=== PATIENT | male | born 1960 | race Caucasian/White ===

== ENCOUNTER 2020-05-23 09:53 | Outpatient (CLI) | payer MEDICARE, MEDICAID, SELFPAY ==
[2020-05-23 12:10] LABS: Basophils # 0.1 10^3/uL (0.0-0.1); Basophils % 1.4 %; Eosinophils # 0.3 10^3/uL (0.0-0.8); Eosinophils % 4.7 %; Hematocrit 45.6 % (42.0-52.0); Hemoglobin 15.2 g/dL (11.7-16.6); Lymphocytes # 1.2 10^3/uL (0.8-4.8); Lymphocytes % 16.4 %; Mean Corpuscular HGB Conc 33.3 g/dL (30.0-36.0); Mean Corpuscular Hemoglobin 31.3 pg (28.0-34.0); Mean Platelet Volume 9.9 fL (7.4-10.4); Monocytes # 0.9 10^3/uL (0.2-0.9); Monocytes % 12.5 %; Neutrophils # 4.53 10^3/uL (1.8-7.7); Neutrophils % 64.2 %; Nucleated Red Blood Cells % 0 %; Platelet Count 179 10^3/cmm (130-400); Red Blood Count 4.85 10^6/uL (4.1-5.3); Red Cell Distribution Width 12.9 % (12.1-15.1); White Blood Count 7.1 10^3/uL (4.0-10.0)
[2020-05-23 12:28] LABS: Alanine Aminotransferase 17 U/L (0-41); Albumin Level 4.3 g/dL (3.5-5.2); Alkaline Phosphatase 89 IU/L (40-130); Anion Gap 13.6 (5-19); Aspartate Amino Transferase 17 U/L (0-40); Blood Urea Nitrogen 14 mg/dL (8-23); Calcium 9.4 mg/dL (8.5-10.5); Carbon Dioxide 26 mmol/L (22-29); Chloride 104 mmol/L (98-107); Globulin 2.8 g/dL (1.3-4.6); Glomerular Filtration Rate 85.8 mL/min (90-130); Glucose 101 mg/dL (65-115); Lactate Dehydrogenase 205 U/L (135-225); Osmolality Calculated 289 mOsm/kg (285-295); Potassium 4.6 mmol/L (3.5-5.1); Sodium 139 mmol/L (136-145); Total Bilirubin 0.4 mg/dL (0.15-1.2); Total Protein 7.1 g/dL (6.6-8.7)
--- NOTE | 2020-05-27 13:24 | ONC CON_ITS ---
Dr. Lewis New Patient Note Patient: Wai Kirkpatrick Unit #: [id number]: 1960 Dicatated By: Yuniel Lewis M.D.Date of Visit: May 23, 2020 Onc MED New Patient/Consult Referring Physician: [facility] History of Present Illness: Mr. Wai Kirkpatrick, is a 59-year-old gentleman with a history of diffuse large B-cell lymphoma diagnosed in August 2019 as per patient prior to diagnosis he noticed progressive left neck mass of 8 to 9 months duration and he had no B symptoms no weight loss no night sweats no dysphagia no dysphonia, patient underwent FNA of cervical lymph node on August 10, 2019 which showed small to medium size B-cell lymphoma subsequently excisional biopsy was done on August 26, 2019 which showed diffuse large B-cell lymphoma, immunohistochemistry showed positive for CD20, PAX 5, BCL-2, BCL 6 e.g. double hit, c-Myc 20% Ki-67 30%, as per record before the diagnosis of lymphoma patient had CT PET scan done which showed hypermetabolic tissue in the left posterior neck in the level 2, level 3 and level 5 measuring 7.3 x 3.7 x 7.8 cm in length with SUV of 7.2-10.8. There are also multiple other cervical lymph nodes. He also had FDG avid supraclavicular lymph nodes and faint FDG accumulation with SUV of 2.4 and pretracheal and para-aortic lymph nodes. FISH testing showed findings consistent with a double hit lymphoma positive for Myc rearrangement and [facility] BCL-2 (14;18) fusion. Patient was admitted to hospital on September 03, 2019 for treatment with DA-REPOCH chemotherapy regimen and with intrathecal methotrexate. As per record intrathecal methotrexate during first chemotherapy course was not given because the patient was on Plavix., So status post 6 cycles of chemotherapy with DA-REPOCH And 5 cycles of intrathecal methotrexate which she completed on January 18, 2020 at [facility] in [place],, CT PET scan done after 4 cycles of chemotherapy on December 21, 2019 showed interval resolution of left neck/supraclavicular lymphadenopathy except for small node adjacent to or within left parotid gland but which has mildly decreased in size and metabolic activity. Stable 10 mm prevascular node with mild metabolic activity As per medical record high-dose methotrexate was under consideration but patient did not go back for that rather moved to [place] in January 2020 so his last visit in hematology clinic at [facility] in [place] was in December 2019. As per medical record his ejection fraction before cycle #2 was 44% Past medical history significant for acute myocardial infarction in November 2014,Status post stent, Now being followed by Dr. Christianson diabetes, essential hypertension, mixed hyperlipidemia, spinal stenosis Today patient denies any specific complaints, no night sweats, no fever chills, no weight loss, no peripheral lymphadenopathy no left neck mass, no weight loss, no dysphagia, no melena or hematochezia, no hemoptysis or hematemesis, no jaundice, no abdominal fullness. Patient is noncompliant and no port maintenance since December 2019 Past Medical History: Mr. Trinidad medical history consists of hyperlipidemia, myocardial infarction, and type II diabetes. Past Surgical History: Mr. Trinidad surgical/procedural history consists of Biopsy on neck, coronary angioplasty, and Right hand repair. Medications: Acyclovir 1 Tablet (of 400 mg) Oral b.i.d., Atorvastatin Calcium 1 Tablet (of 40 mg) Oral daily, Carvedilol 1 Tablet (of 6.25 mg) Oral b.i.d., Cozaar 1 Tablet (of 25 mg) Oral daily, Sulfamethoxazole-Trimethoprim 1 Tablet (of 800-160 mg) Oral for 3 days Allergies: Penicillins Social History: Mr. Kirkpatrick is single and he is a disabled. Mr. Kirkpatrick no longer smokes but had smoked 1.0 pack/day for 25 years. He has no history of drinking. He has indicated exposure to the following products: cigarettes. Family History: Mr. Kirkpatrick's mother is alive: type II diabetes. Mr. Kirkpatrick's father at age 66: heart disease. Mr. Kirkpatrick has 1 brother who is : liver cancer. Review Of Symptoms: Review of Systems is not available for this patient. Vital Signs: Performed on May 23, 2020 11:16: 0, 3, 0.00, 0.00 sq.m, 94 % (LOW), 70 /min, 18 /min, 134/86 mm(hg), 97.8 F (LOW), and 212 lbs (HIGH). Performance Status: 1 - No physically strenuous activity, but ambulatory and able to carry out light or sedentary work (e.g. office work, light house work). (ECOG) Physical Examination: ENMT - No mouth sores, no thrush, no jaundice, no cervical lymphadenopathy or peripheral lymphadenopathy, Respiratory - Lungs are clear to auscultation, Cardiovascular - Regular rate and rhythm of heart, Abdomen - Soft, bowel sounds present, Extremities - No visible edema. Lab/Imaging: Most recent lab results are not available for this patient. Impression: Diffuse large B-cell lymphoma, double hit involving left cervical/supraclavicular, pretracheal, possible involvement of mesenteric and inguinal lymph nodes status post 6 cycles of DA-REPOCH and 5 cycles of intrathecal methotrexate at [facility] in [place], completed in December 2019 follow-up CT PET scan done after 4 cycles of chemotherapy on December 21, 2019 showed interval resolution of left neck/supraclavicular lymphadenopathy except for small node adjacent to or within the left parotid gland but which has mildly decreased in size and metabolic activity, As per medical record patient was supposed to receive high-dose methotrexate but patient moved to [place] in January 2020 and did not consider further treatment or port maintenance History of coronary artery disease status post stent placement, ejection fraction in the range of 40s Hypertension Diabetes Hyperlipidemia Chronic lower back pain due to spinal stenosis Plan: Discussed with patient regarding his disease status, follow-up plan, this point ,will flush his Port-A-Cath today and then continue with monthly port maintenance. We will also consider follow-up CT scan of neck chest abdomen pelvis, as patient is a high risk for recurrence and did not complete recommended treatment, as per medical record high-dose methotrexate was under consideration but patient moved to [facility]. As per discussion with patient he said because of his heart condition high-dose chemotherapy with stem cell was not considered rather observation with lab work-up and scans Patient will return to clinic in 1 month with CBC CMP and LDH and CT scan of neck chest abdomen pelvis Signed By: Yuniel Lewis M.D. <<Signature on File>>
== END 2020-05-23 09:54 | disposition home or self-care (01) ==
LOC: ONCMED 09:57
PROVIDERS: Family Provider Nurse Practitioner; PCP Nurse Practitioner; Visit Provider Internal Medicine Hematology & Oncology
DX: C83.30 Diffuse large B-cell lymphoma, unspecified site (principal); I25.10 Atherosclerotic heart disease of native coronary artery without angina pectoris; I10 Essential (primary) hypertension; E11.9 Type 2 diabetes mellitus without complications; E78.5 Hyperlipidemia, unspecified; G89.29 Other chronic pain; M54.5 Low back pain; M48.061 Spinal stenosis, lumbar region without neurogenic claudication; Z79.899 Other long term (current) drug therapy
CPT/HCPCS: 36591; 80053; 83615; 85025; 99205

== ENCOUNTER 2020-06-01 08:58 | Outpatient (CLI) | payer MEDICARE, MEDICAID, SELFPAY ==
--- NOTE | 2020-06-01 09:12 | CT_ITS ---
WS: [id number] CT NECK WITH CONTRAST HISTORY: LYMPHOMA RESTAGING TECHNIQUE: Contiguous 5 mm axial images are performed through the neck with intravenous contrast. Sag ittal and coronal reformats are also submitted. All CT scans at [facility] use at least o ne of these dose optimization techniques: automated exposure control; mA and/or kV adjustment per pat ient size (includes targeted exams where dose is matched to clinical indication); or iterative recons truction. CONTRAST: CONTRAST: Omnipaque 300; 95 mL IV. DLP: 1903.36 mGycm COMPARISON: None available. Nasopharynx, oropharynx, hypopharynx and larynx are unremarkable. No soft tissue masses or abnormal e nhancement. Torus tubarius and fossa of Rosenmuller and parapharyngeal fat are normal. There are very small benign cervical chain lymph nodes. No enlarged lymph nodes. Normal thyroid. No nodules. Low-attenuation nodule in the RIGHT parotid measures 9 mm. This nodule do es not enhance and this is probably a small cyst. Moderate degenerative disc disease in the cervical spine. Most advanced at C5-6 and C6-7. No fracture s. Visualized portions of the skull base demonstrate no abnormalities. Orbits and globes are within norm al limits. No soft tissue masses. Occluded proximal LEFT internal carotid artery. There is dense calcification and soft plaque. Visualized paranasal sinuses and mastoid air cells are normal. Chronic emphysema. Right-sided Mediport with tip overlying the distal SVC. CT/CT neck w con* [id number] IMPRESSION: 1. No cervical chain lymphadenopathy. 2. Occluded LEFT ICA at the bifurcation.
[2020-06-01] MEDS: iohexol 300 mg/mL 100 mL Btl IV (09:35)
== END 2020-06-01 08:59 | disposition home or self-care (01) ==
PROVIDERS: Visit Provider Internal Medicine Hematology & Oncology
DX: C83.30 Diffuse large B-cell lymphoma, unspecified site (principal); I65.22 Occlusion and stenosis of left carotid artery
CPT/HCPCS: 70491; Q9967

== ENCOUNTER 2022-02-18 13:33 | Emergency (ER) | payer MEDICARE, SELFPAY ==
[2022-02-18 13:47] VITALS: BP 134/76; PULSE 99; RESP 18; TEMP 38.2; O2SAT 94
[2022-02-18 14:32] LABS: Influenza A by IFA positive (Negative); Influenza B by IFA negative (Negative)
[2022-02-18 14:44] LABS: SARS Covid-2 Antigen negative (Negative)
--- NOTE | 2022-02-18 15:16 | ED_ITS ---
Documented by User: TRACIE Johnson 02/18/22 15:26 HPI - URI/Sore Throat General: Chief Complaint: Upper Respiratory Infection Stated Complaint: SOB, n/v Time Seen by Provider: 02/18/22 14:59 History of Present Illness: Patient is in ER for concerns of influenza. He reports that 3 days ago he started having fever and chills with body aches. He reports that he is coughing up phlegm. He reports that he is having some shortness of breath. He is a smoker but has not smoked since this started. He does have an albuterol inhaler at home but he has not been using that. Is still able to drink and he has still been urinating but has had no appetite since Saturday Associated symptoms: Reports chills, fever(s), headache(s), nasal congestion and nausea; Deny abdominal pain, chest pain or vomiting Review of Systems Const: Reports: fever(s), chills, body aches and fatigue ENMT: Reports: nasal discharge, nasal congestion and post nasal drip Card: Denies: chest pain or palpitations Resp: Reports: dyspnea, productive cough and wheezing GI: Reports: nausea; Denies: abdominal pain or vomiting : Denies: flank pain, dysuria or urinary frequency Musc: Reports: other (Body aches) Neuro: Reports: headache(s); Denies: numbness in extremities, weakness in extremities, sensory changes or lack of coordination PFSH ED PFSH: Medical History CAD (coronary artery disease) Diffuse large B-cell lymphoma, unspecified site HTN (hypertension) Spinal stenosis Surgical History H/O hand surgery Family History Father Heart disease Mother Heart disease Social History Smoking and tobacco status: current every day smoker cigarettes Packs smoked per day: 0.5 Years cigarettes smoked: 55 Second hand smoke exposure: No Alcohol intake: never Lives independently: Yes Household members: children Marital status: service: No Current occupational status: disabled History of recent travel: No Current gender identity: Male Special carlos needs: No Agree to transfusion: Yes Physical Exam Const: COMMON NORMALS: no acute distress, patient oriented x3 and alert HENMT: COMMON NORMALS: TM's normal bilaterally NOSE: Nasal discharge present clear TYMPANIC MEMBRANE: TM's normal bilaterally THROAT: uvula midline and postnasal drainage Neck/C-Spine: COMMON NORMALS: no JVD Resp: COMMON NORMALS: normal respiratory effort and No use of accessory muscles AUSCULTATION: wheezes expiratory wheezes and throughout Cardio: COMMON NORMALS: no JVD, regular rate, regular rhythm, S1 normal heart sound present, S2 normal heart sound present and No murmurs present (Cardio) RATE: regular rate RHYTHM: regular rhythm HEART SOUNDS: S1 normal heart sound present and S2 normal heart sound present Neuro: COMMON NORMALS: patient oriented x3 SENSORIUM/ORIENTATION: Yes alert Course Vital Signs: Vital signs: Vital Signs Temperature 100.7 F H 02/18/22 13:47 Pulse Rate 99 02/18/22 13:47 Respiratory Rate 18 02/18/22 13:47 Blood Pressure 134/76 02/18/22 13:47 Pulse Oximetry 94 02/18/22 13:47 Oxygen Delivery Me thod 02/18/22 13:47 MDM - URI/Sore Throat Medical Decision Making Patient is in today for cough, body aches, fever, chills x3 days. Patient tested positive for influenza A. Given patient's history of diffuse large B- cell lymphoma and his report that he has prediabetic I will go ahead and treat patient for influenza with Tamiflu medication. Patient is educated regarding possible benefits and side effects of this medication. Zofran is also given to help with patient's nausea although I suspect the nausea is secondary to his significant postnasal drainage. Patient's lungs with scattered expiratory wheezes throughout. He does have albuterol inhaler at home I have advised him to use that medication as previously prescribed for wheezing. Patient is still a smoker but states that he is not smoking since becoming ill. Advised him of the importance of staying well-hydrated. Discussed fever control. Patient's vital signs are stable in ER today. Will discharge patient home with conservative treatment and Tamiflu. Follow-up with primary care provider as needed. Return to the ER for any new or worsening symptoms including, but not limited to, worsening shortness of breath despite albuterol inhaler, inability to keep oral liquids down, inability to control fever despite Tylenol Motrin. Lab Data Laboratory Results Influenza Type A Ag positive (Negative) 02/18/22 13:50 Influenza Type B Ag negative (Negative) 02/18/22 13:50 SARS-CoV-2 Ag (Rapid) negative (Negative) 02/18/22 13:50 Discharge Plan Discharge Patient Disposition: Home Clinical Impression: Influenza Condition: Stable Prescriptions: New Tamiflu 75 mg capsule 75 mg PO BID 5 Days Qty: 10 0RF ondansetron HCl 4 mg tablet 4 mg PO Q8H PRN (Reason: nausea and vomiting) 3 Days Qty: 9 0RF No Action atorvastatin 40 mg tablet 40 mg PO DAILY Qty: 90 1RF carvedilol 6.25 mg tablet 6.25 mg PO BID Qty: 180 1RF Rx Instructions: must administer with a meal/food losartan 25 mg tablet 25 mg PO DAILY Qty: 90 1RF nitroglycerin 0.4 mg tablet, sublingual 0.4 mg sublingual Q5M PRN (Reason: chest pain) Qty: 60 1RF Rx Instructions: do not exceed 3 doses per episode albuterol sulfate 90 mcg/actuation HFA aerosol inhaler 2 inh inhalation Q6H PRN (Reason: shortness of breath or wheezing) Qty: 8.5 2RF Discharge Orders: Discharge ED (Routine); Ordered 02/18/22 Ordered By: Beatriz Wheat Referrals: Luisa Andrews MD [Primary Care Provider] - Discharge Diet: Advance as tolerated Discharge Activity: Increase activity as tolerated Patient Instructions: Oseltamivir (By mouth) (Tamiflu), Influenza (ED) Activity Restrictions/Additional Instructions: Start Tamiflu today. Use Zofran as needed every 8 hours for nausea and vomiting. Make sure that you are staying well-hydrated. You may use your albuterol inhaler at home as previously prescribed for wheezing and shortness of breath. Follow-up with your primary care provider as needed. Return to the ER for any new or worsening symptoms including, but not limited to, inability to keep oral fluids down, increased shortness of breath despite albuterol inhaler, uncontrolled fever. Coding Level of Care Code ED Interior Design Professional for Chg Fwd Exam Detailed Documented by User: Mao Manuel DO 02/18/22 16:46 HPI - URI/Sore Throat 2 General: Chief Complaint: Upper Respiratory Infection Stated Complaint: SOB, n/v Time Seen by Provider: 02/18/22 14:59 PFSH ED PFSH: Medical History CAD (coronary artery disease) Diffuse large B-cell lymphoma, unspecified site HTN (hypertension) Spinal stenosis Surgical History H/O hand surgery Family History Father Heart disease Mother Heart disease Social History Smoking and tobacco status: current every day smoker cigarettes Packs smoked pe r day: 0.5 Years cigarettes smoked: 55 Second hand smoke exposure: No Alcohol intake: never Lives independently: Yes Household members: children Marital status: service: No Current occupational status: disabled History of recent travel: No Current gender identity: Male Special carlos needs: No Agree to transfusion: Yes Course Vital Signs: Vital signs: Vital Signs Temperature 100.7 F H 02/18/22 13:47 Pulse Rate 99 02/18/22 13:47 Respiratory Rate 18 02/18/22 13:47 Blood Pressure 134/76 02/18/22 13:47 Pulse Oximetry 94 02/18/22 13:47 Oxygen Delivery Me thod 02/18/22 13:47 MDM - URI/Sore Throat Medical Decision Making Patient is in today for cough, body aches, fever, chills x3 days. Patient tested positive for influenza A. Given patient's history of diffuse large B- cell lymphoma and his report that he has prediabetic I will go ahead and treat patient for influenza with Tamiflu medication. Patient is educated regarding possible benefits and side effects of this medication. Zofran is also given to help with patient's nausea although I suspect the nausea is secondary to his significant postnasal drainage. Patient's lungs with scattered expiratory wheezes throughout. He does have albuterol inhaler at home I have advised him to use that medication as previously prescribed for wheezing. Patient is still a smoker but states that he is not smoking since becoming ill. Advised him of the importance of staying well-hydrated. Discussed fever control. Patient's vital signs are stable in ER today. Will discharge patient home with conservative treatment and Tamiflu. Follow-up with primary care provider as needed. Return to the ER for any new or worsening symptoms including, but not limited to, worsening shortness of breath despite albuterol inhaler, inability to keep oral liquids down, inability to control fever despite Tylenol Motrin. Chart reviewed and patient discussed with midlevel. Agree with assessment and plan. Lab Data Laboratory Results Influenza Type A Ag positive (Negative) 02/18/22 13:50 Influenza Type B Ag negative (Negative) 02/18/22 13:50 SARS-CoV-2 Ag (Rapid) negative (Negative) 02/18/22 13:50 Discharge Plan Discharge Patient Disposition: Home Clinical Impression: Influenza Condition: Stable Prescriptions: New Tamiflu 75 mg capsule 75 mg PO BID 5 Days Qty: 10 0RF ondansetron HCl 4 mg tablet 4 mg PO Q8H PRN (Reason: nausea and vomiting) 3 Days Qty: 9 0RF No Action atorvastatin 40 mg tablet 40 mg PO DAILY Qty: 90 1RF carvedilol 6.25 mg tablet 6.25 mg PO BID Qty: 180 1RF Rx Instructions: must administer with a meal/food losartan 25 mg tablet 25 mg PO DAILY Qty: 90 1RF nitroglycerin 0.4 mg tablet, sublingual 0.4 mg sublingual Q5M PRN (Reason: chest pain) Qty: 60 1RF Rx Instructions: do not exceed 3 doses per episode albuterol sulfate 90 mcg/actuation HFA aerosol inhaler 2 inh inhalation Q6H PRN (Reason: shortness of breath or wheezing) Qty: 8.5 2RF Discharge Orders: Discharge ED (Routine); Ordered 02/18/22 Ordered By: Beatriz Wheat Referrals: Luisa Andrews MD [Primary Care Provider] - Discharge Diet: Advance as tolerated Discharge Activity: Increase activity as tolerated Patient Instructions: Oseltamivir (By mouth) (Tamiflu), Influenza (ED) Activity Restrictions/Additional Instructions: Start Tamiflu today. Use Zofran as needed every 8 hours for nausea and vomiting. Make sure that you are staying well-hydrated. You may use your albuterol inhaler at home as previously prescribed for wheezing and shortness of breath. Follow-up with your primary care provider as needed. Return to the ER for any new or worsening symptoms including, but not limited to, inability to keep oral fluids down, increased shortness of breath despite albuterol inhaler, uncontrolled fever. Coding Level of Care Code ED Interior Design Professional for Chg Fwd Exam Detailed
== END 2022-02-18 15:50 | disposition home or self-care (01) ==
PROVIDERS: Family Medicine; Emergency Provider Nurse Practitioner Family; PCP Family Medicine
DX: J11.1 Influenza due to unidentified influenza virus with other respiratory manifestations (principal); I25.10 Atherosclerotic heart disease of native coronary artery without angina pectoris; I10 Essential (primary) hypertension; Z85.72 Personal history of non-Hodgkin lymphomas; F17.210 Nicotine dependence, cigarettes, uncomplicated; Z20.822 Contact with and (suspected) exposure to COVID-19
CPT/HCPCS: 87426; 87804; 99283

== ENCOUNTER 2022-02-23 11:51 | Inpatient (IN) | payer MEDICARE, MEDICAID, SELFPAY ==
[2022-02-23] VITALS (14 sets, daily range): BP systolic 118–140; BP diastolic 61–78; PULSE 78–108; RESP 16–32; TEMP 36.3–36.7; O2SAT 90–98; BMI 28.5
--- NOTE | 2022-02-23 13:13 | XRR_ITS ---
PROCEDURE INFORMATION: Exam: XR Chest Exam date and time: 02/23/2022 1:30 PM Age: 61 years old Clinical indication: Cough and shortness of breath. History of lymphoma. Worsening cough and shortness of breath. TECHNIQUE: Imaging protocol: Radiologic exam of the chest. Views: 1 view. COMPARISON: CR XR chest 1V [id number] 03/09/2015 1:08 PM FINDINGS: Tubes, catheters and devices: Right port with tip in the SVC. Lungs: There is mild peribronchial wall thickening. No pulmonary consolidation. Pleural spaces: No pleural effusion. No pneumothorax. Heart/Mediastinum: The cardiac silhouette is approximately unchanged. No gross evidence of pneumomediastinum. Bones/joints: No gross fracture. Soft tissues: Possible small nodules in the lower right chest. XR/XR chest 1V portable [id number] IMPRESSION: 1. There is mild peribronchial wall thickening; query viral infection/bronchitis, chronic bronchitis and/or asthma. 2. Possible small nodules in the lower right chest. 3. Recommend CT chest to better characterize.
--- NOTE | 2022-02-23 13:43 | ECG_ITS ---
[facility] Test Date: 2022-02-23 Pat Name: Wai Kirkpatrick Department: Room: Gender: Male Well Drill Operator: : 1960 Requested By: Rocky Alas Order Number: [id number] Odell MD: Noreen Sexton M.D. Measurements Intervals [place] Rate: 97 P: 76 VA: 155 QRS: 72 QRSD: 110 T: 91 QT: 341 QTc: 434 Interpretive Statements SINUS RHYTHM LOW QRS VOLTAGE IN PRECORDIAL LEADS [QRS DEFLECTION < 1.0 mV IN CHEST LEADS] SEPTAL MYOCARDIAL INFARCTION , PROBABLY OLD [40+ ms Q WAVE IN V1/V2] Compared to ECG 03/09/2015 12:10:28 Low QRS voltage now present Myocardial infarct finding now present Electronically Signed On 02-24-2022 7:47:01 PIPE BENDER by Noreen Sexton M.D. [id number]
--- NOTE | 2022-02-23 13:44 | ED_ITS ---
HPI - SOB/Dyspnea General: Chief Complaint: Shortness of Breath/Dyspnea Stated Complaint: SOB Time Seen by Provider: 02/23/22 13:13 Source: patient and family Mode of arrival: ambulatory Limitations: no limitations History of Present Illness: HPI Narrative: This patient returns to our emergency department because of increasing difficulty breathing and a nonproductive cough. He states his symptoms have not improved over the duration of his illness and treatment that was initiated several days ago in the emergency department. He was positive for influenza A and was begun on Tamiflu. He has not completed a course of therapy for that medication. He has a tobacco user. He states he has been told he has COPD and has an inhaler at home but states he cannot breathe well enough to using his inhaler. He denies any known fevers. He states his appetites been diminished but he has been drinking fluids. He denies any sustained chest pain but is sore when he coughs. He denies any history of thromboembolic disease. He states he has had stents placed in the past but again denies any sustained chest pain. He rates he is not any nausea vomiting or diarrhea. No prior history of admissions for COPD etc. MD elicited complaint: cough Pertinent past history: COPD Timing: progressively worsening Known history of: COPD Associated symptoms: Deny abdominal pain, chest pain, extremity pain, fever(s), nausea, palpitations or vomiting Review of Systems Const: Reports: body aches and change in appetite; Denies: fever(s) or chills Eyes: Denies: change in vision ENMT: Reports: nasal congestion; Denies: throat pain, odynophagia or nasal discharge Card: Denies: chest pain, palpitations, irregular heart rhythm or edema Resp: Reports: dyspnea, non-productive cough and wheezing GI: Denies: abdominal pain, nausea, vomiting, hematochezia or melena : Denies: flank pain, difficulty urinating, dysuria or urinary frequency Musc: Denies: neck pain, back pain, extremity pain or extremity swelling Skin/Breast: Denies: rash Neuro: Denies: headache(s), numbness in extremities or weakness in extremities PFS ED PFSH: Medical History CAD (coronary artery disease) Diffuse large B-cell lymphoma, unspecified site HTN (hypertension) Spinal stenosis Surgical History H/O hand surgery Family History Father Heart disease Mother Heart disease Social History Smoking and tobacco status: current every day smoker cigarettes Packs smoked per day: 0.5 Years cigarettes smoked: 55 Second hand smoke exposure: No Alcohol intake: never Lives independently: Yes Household members: children Marital status: service: No Current occupational status: disabled History of recent travel: No Current gender identity: Male Special carlos needs: No Agree to transfusion: Yes Physical Exam Narrative: EXAM NARRATIVE: The patient is alert he has some conversational dyspnea when questioned. Makes good eye contact. Const: COMMON NORMALS: average body habitus, patient oriented x3 and alert GENERAL APPEARANCE: cooperative HENMT: COMMON NORMALS: normocephalic, atraumatic, Normal nasal mucous membranes and turbinates present, moist oral mucous membranes and oropharynx normal HEAD & SCALP: normocephalic and atraumatic NOSE: Normal nasal mucous membranes and turbinates present Eye: COMMON NORMALS: Equal, round and reactive pupils present, EOMs intact bilaterally and conjunctivae normal CONJUNCTIVA: Yes conjunctivae normal PUPIL: Yes Equal, round and reactive pupils present Neck/C-Spine: COMMON NORMALS: full ROM, no JVD and No carotid bruits Chest: COMMONS NORMALS: normal inspection of the chest (Port left anterior chest) Resp: EFFORT & INSPECTION: Yes labored and Yes Actively coughing AUSCULTATION: rhonchi, wheezes and diminished lung sounds Cardio: COMMON NORMALS: no JVD, regular rate, regular rhythm, No murmurs p resent (Cardio) and Peripheral pulses 2+ throughout RATE: regular rate RHYTHM: regular rhythm PERIPHERAL PULSES: Peripheral pulses 2+ throughout GI: COMMON NORMALS: Normal to inspection, nondistended, normoactive bowel sounds present, Soft to palpation and non-tender PALPATION: Yes Soft to palpation : COMMON NORMALS: Yes no CVA tenderness BLADDER/KIDNEY EXAM: Yes no CVA tenderness Back/Pelvis: COMMON NORMALS: no CVA tenderness, thoracic and lumbar spine normal to inspection, no thoracic nor lumbar tenderness and thoraco-lumbar ROM normal Extremity: COMMON NORMALS: normal to inspection, full ROM, capillary refill normal, no calf tenderness and no pedal edema Neuro: COMMON NORMALS: patient oriented x3, moves all extremities, no focal motor deficits and no sensory deficits noted SENSORIUM/ORIENTATION: Yes alert CRANIAL NERVES: Yes CN normal except as noted Psych: COMMON NORMALS: mental status grossly normal and cooperative Skin: COMMON NORMALS: no rashes or lesions noted, no wounds and no jaundice GENERAL SKIN EXAM: no rashes or lesions noted Course Reevaluation(s): Reevaluation #1: Patient states he is a bit better after his single DuoNeb treatment. Auscultation of chest reveals significantly improved air movement with predominant wheezes in both lung nix. We will [place] proceed with a prolonged beta-2 and anticholinergic treatment. Radiology requests CT scan to characterize abnormal findings on chest x-ray today we will going proceed with a Noncon CT chest. Time: 14:32 Reevaluation #2: Patient is now becoming more dyspneic. Would not obtain an ABG and institute noninvasive positive pressure ventilation as needed. Time: 15:50 Reevaluation #3: Markedly improved with noninvasive positive pressure. While his ABG was not terribly concerning at the the initiation of his BiPAP his clinical work of breathing prompted the initiation of that therapy. He may in fact be able to be weaned off his BiPAP rather easily but I think we have to give him some time before we can make that decision and therefore the admission- we will go ahead and plan for admission. Time: 17:07 Vital Signs: Vital signs: Vital Signs Temperature 98.1 F 02/23/22 12:03 Pulse Rate 89 02/23/22 16:47 Respiratory Rate 20 H 02/23/22 16:16 Blood Pressure 140/68 02/23/22 16:16 Pulse Oximetry 97 02/23/22 16:47 Oxygen Delivery Me thod 02/23/22 16:16 Oxygen Flow Rate 2 02/23/22 16:16 Fraction of Inspir ed Oxygen 30 02/23/22 16:47 MDM - SOB/Dyspnea Medical Decision Making Patient with a known history of COPD, chronic tobacco use, coronary artery disease presents to the emergency department as a result of increasing wheezing and shortness of breath. He was recently diagnosed as having influenza and started on Tamiflu but he states he continued to have him worsening symptoms. His clinical examination initially revealed very tight chest with minimal air movement. After single neb he did show some improvement with increased air movement and concomitantly increased wheezing. He was given an hour-long DuoNeb which also proved to be helpful but developed increased work of breathing and responded well to a trial of noninvasive positive pressure pressure ventilation to reduce that work of breathing. CT scan was obtained due to radiology's recommendations and that shows potential perihilar and more distal infiltrates. He also has an elevation in his BNP but no acute EKG changes. I do not feel that ACS is a issue at this time his troponin is not significantly elevated. I do not have a baseline BNP for him but he does not have any significant cardiomegaly on his imaging. Plan will be to start him on antibiotics, continue nebs and steroids as indicated and follow his clinical response. Medical Records I reviewed the patient's medical records. Lab Data I reviewed the patient's lab results. 02/23/22 14:07 02/23/22 14:07 Labs/Radiology: Radiology Impressions Chest X-Ray 02/23/22 13:13 IMPRESSION: 1. There is mild peribronchial wall thickening; query viral infection/bronchitis, chronic bronchitis and/or asthma. 2. Possible small nodules in the lower right chest. 3. Recommend CT chest to better characterize. Chest CT 02/23/22 14:31 IMPRESSION: 1. Patchy tree-in-bud micronodular infiltrates throughout both lungs more prominent in the perihilar regions and RIGHT greater than LEFT lower lobes. Associated bronchiectasis. Recommend correlation for pneumonitis. 2. No focal consolidation or pleural fluid. 3. A few prominent LEFT peribronchial and hilar lymph nodes likely reactive. 4. Coronary calcification. 5. No other acute findings. Laboratory Results WBC 10.7 10^3/uL (4.0-10.0) H 02/23/22 14:07 RBC 5.02 10^6/uL (4.1-5.3) 02/23/22 14:07 Hgb 15.2 g/dL (11.7-16.6) 02/23/22 14:07 Hct 45.1 % (42.0-52.0) 02/23/22 14:07 MCV 89.8 fl (80-94) 02/23/22 14:07 MCH 30.3 pg (28.0-34.0) 02/23/22 14:07 MCHC 33.7 g/dL (30.0-36.0) 02/23/22 14:07 RDW 12.3 % (12.1-15.1) 02/23/22 14:07 Plt Count 250 10^3/cmm (130-400) 02/23/22 14:07 MPV 9.8 fL (7.4-10.4) 02/23/22 14:07 Neut % (Auto) 62.3 % 02/23/22 14:07 Lymph % (Auto) 10.5 % 02/23/22 14:07 [place] % (Auto) 26.1 % 02/23/22 14:07 Eos % (Auto) 0.1 % 02/23/22 14:07 Baso % (Auto) 0.2 % 02/23/22 14:07 Neut # (Auto) 6.69 10^3/uL (1.8-7.7) 02/23/22 14:07 Lymph # (Auto) 1.1 10^3/uL (0.8-4.8) 02/23/22 14:07 [place] # (Auto) 2.8 10^3/uL (0.2-0.9) H 02/23/22 14:07 Eos # (Auto) 0.0 10^3/uL (0.0-0.8) 02/23/22 14:07 Baso # (Auto) 0.0 10^3/uL (0.0-0.1) 02/23/22 14:07 Nucleated RBC % (auto) 0 % 02/23/22 14:07 Nucleated RBCs # 0.0 /100WBC 02/23/22 14:07 Specimen Type Arterial 02/23/22 15:51 Sample Site Brachial, left 02/23/22 15:51 ABG pH 7.40 (7.35-7.45) 02/23/22 15:51 ABG pCO2 40.6 mmHg (35-45) 02/23/22 15:51 ABG pO2 60.4 mmHg (80.0-100.0) L 02/23/22 15:51 ABG HCO3 25.4 mmol/L (22-26) 02/23/22 15:51 ABG O2 Saturation 91.9 02/23/22 15:51 ABG Base Excess 0.5 mmol/L (-2.0-2.0) 02/23/22 15:51 Arik Test N/a 02/23/22 15:51 A-a O2 Gradient 11.5 mmHg (5-10) H 02/23/22 15:51 Hematocrit 46.0 % (42-52) 02/23/22 15:51 Hgb O2 Saturation 90.0 % (95-100) L 02/23/22 15:51 Carboxyhemoglobin 1.3 %THgb (0.4-20.1) 02/23/22 15:51 Methemoglobin 0.8 % (0.4-1.5) 02/23/22 15:51 Total Hemoglobin 15.0 g/dL (14-18) 02/23/22 15:51 Sodium 133.0 mmol/L (131-143) 02/23/22 15:51 Potassium 4.1 mmol/L (3.5-5.0) 02/23/22 15:51 Glucose 179.0 mg/dL (70-115) H 02/23/22 15:51 Ionized Calcium 1.1 mmol/L (1.1-1.4) 02/23/22 15:51 O2 Delivery Device Nc 02/23/22 15:51 O2 Liters/Min 2.0 % 02/23/22 15:51 FiO2 28.0 % 02/23/22 15:51 Billet Heater Operator ID Amh 02/23/22 15:51 Sodium 132 mmol/L (136-145) L 02/23/22 14:07 Potassium 4.4 mmol/L (3.5-5.1) 02/23/22 14:07 Chloride 92 mmol/L (98-107) L 02/23/22 14:07 Carbon Dioxide 26 mmol/L (22-29) 02/23/22 14:07 Anion Gap 18.4 (5-19) 02/23/22 14:07 BUN 17 mg/dL (8-23) 02/23/22 14:07 Creatinine 0.8 mg/dL (0.7-1.2) 02/23/22 14:07 GFR Calculation 97.6 mL/min (90-130) 02/23/22 14:07 Glucose 169 mg/dL (65-115) H 02/23/22 14:07 Calculated Osmolality 279 mOsm/kg (285-295) L 02/23/22 14:07 Calcium 9.1 mg/dL (8.5-10.5) 02/23/22 14:07 Total Bilirubin 0.7 mg/dL (0.15-1.2) 02/23/22 14:07 AST 47 U/L (0-40) H 02/23/22 14:07 ALT 53 U/L (0-41) H 02/23/22 14:07 Alkaline Phosphatase 98 U/L (40-130) 02/23/22 14:07 Troponin T Baseline 19 ng/L (0-15) H 02/23/22 14:07 NT-Pro-B Natriuret Pep 2912 pg/mL (0-125) H 02/23/22 14:07 Total Protein 7.2 g/dL (6.6-8.7) 02/23/22 14:07 Albumin 3.2 g/dL (3.5-5.2) L 02/23/22 14:07 Globulin 4.0 g/dL (1.3-4.6) 02/23/22 14:07 EKG Data EKG 1: I personally reviewed and interpreted this EKG as follows: Interpretation: Contemporaneous EKG interpretation in the emergency department reveals ventricular rate of 97 bpm. Consistent with normal sinus rhythm. Has normal intervals, normal axis, normal QTc interval. Precordial leads show loss of forces anteriorly consistent with a possible remote anterior wall ID but no acute ST-T wave changes noted today. EKG 2: I personally reviewed and interpreted this EKG as follows: Interpretation: Contemporaneous review of the second EKG this visit reveals ventricular rate of 94 bpm consistent with sinus rhythm. Normal intervals and normal axis. Still has loss of forces anteriorly consistent with a prior anterior septal ID. No acute changes and no changes from prior tracing. Discharge Plan Discharge Patient Disposition: Placed in Observation Clinical Impression: COPD exacerbation, Influenza Condition: Stable Prescriptions: No Action carvedilol 6.25 mg tablet 6.25 mg PO BID Qty: 180 1RF Rx Instructions: must administer with a meal/food nitroglycerin 0.4 mg tablet, sublingual 0.4 mg sublingual Q5M PRN (Reason: chest pain) Qty: 60 1RF Rx Instructions: do not exceed 3 doses per episode albuterol sulfate 90 mcg/actuation HFA aerosol inhaler 2 inh inhalation Q6H PRN (Reason: shortness of breath or wheezing) Qty: 8.5 2RF ondansetron HCl 4 mg tablet 4 mg PO Q8H PRN (Reason: Nausea And Vomiting) oseltamivir 75 mg capsule 75 mg PO BID Rx Instructions: rx filled 02/18/22 5d/s atorvastatin 40 mg tablet 40 mg PO BEDTIME losartan 25 mg tablet 25 mg PO QAM aspirin 325 mg Tablet 325 mg PO DAILY Referrals: Luisa Andrews MD [Primary Care Provider] - Coding Level of Care Code ED Systems Test Analyst for Chg Fwd Exam Comprehensive
[2022-02-23] MEDS: ipratropium-albuterol 3 mL Neb INHALATION (13:55)
[2022-02-23] MEDS: sodium chloride 0.9% 1,000 ML 999 ML IV (14:12)
[2022-02-23 14:16] LABS: Basophils % 0.2 %; Eosinophils % 0.1 %; Hematocrit 45.1 % (42.0-52.0); Hemoglobin 15.2 g/dL (11.7-16.6); Lymphocytes # 1.1 10^3/uL (0.8-4.8); Lymphocytes % 10.5 %; Mean Corpuscular HGB Conc 33.7 g/dL (30.0-36.0); Mean Corpuscular Hemoglobin 30.3 pg (28.0-34.0); Mean Corpuscular Volume 89.8 fl (80-94); Mean Platelet Volume 9.8 fL (7.4-10.4); Monocytes # 2.8 10^3/uL (0.2-0.9); Monocytes % 26.1 %; Neutrophils # 6.69 10^3/uL (1.8-7.7); Neutrophils % 62.3 %; Nucleated Red Blood Cells % 0 %; Platelet Count 250 10^3/cmm (130-400); Red Blood Count 5.02 10^6/uL (4.1-5.3); Red Cell Distribution Width 12.3 % (12.1-15.1); White Blood Count 10.7 10^3/uL (4.0-10.0)
--- NOTE | 2022-02-23 14:31 | CT_ITS ---
WS: [id number] CT CHEST TECHNIQUE: Noncontrast CT of the chest with coronal and sagittal reformatted images. CLINICAL INFORMATION: rad request to charaterize nodules COMPARISON: Radiograph February 23, 2022 DLP: 541.[address] scans at [facility] use at least one of these dose optimization techniques: automated e xposure control; mA and/or kV adjustment per patient size (includes targeted exams where dose is matc hed to clinical indication); or iterative reconstruction. FINDINGS: Some images are degraded due to breathing artifact. Patchy tree-in-bud infiltrates throughout both janene ngs most prominent in the RIGHT greater than LEFT perihilar regions extending into the RIGHT greater than LEFT lower lobes bilaterally. Findings are likely infectious or inflammatory etiology. Recommend correlation for pneumonitis. No focal consolidation or pleural fluid. Bronchiectasis in the RIGHT gr eater than LEFT upper lobes and RIGHT greater than LEFT lower lobes. Tree-in-bud infiltrates in the R IGHT middle lobe and lingula. Normal caliber thoracic aorta. Coronary calcification. A few presumably reactive slightly prominent p eribronchial and hilar lymph nodes. Adrenal glands are normal. Splenic granulomas. Normal GE junction . Mild thoracic kyphosis. Hypertrophic changes thoracic spine. CT/CT chest wo con [id number] IMPRESSION: 1. Patchy tree-in-bud micronodular infiltrates throughout both lungs more prom inent in the perihilar regions and RIGHT greater than LEFT lower lobes. Associa kalpesh bronchiectasis. Recommend correlation for pneumonitis. 2. No focal consolidation or pleural fluid. 3. A few prominent LEFT peribronchial and hilar lymph nodes likely reactive. 4. Coronary calcification. 5. No other acute findings.
[2022-02-23 14:39] LABS: Troponin(5th) Baseline 19 ng/L (0-15)
[2022-02-23] MEDS: ipratropium-albuterol 3 mL Neb 9 ML INHALATION (14:43)
[2022-02-23 14:47] LABS: Alanine Aminotransferase 53 U/L (0-41); Albumin Level 3.2 g/dL (3.5-5.2); Alkaline Phosphatase 98 U/L (40-130); Anion Gap 18.4 (5-19); Aspartate Amino Transferase 47 U/L (0-40); Blood Urea Nitrogen 17 mg/dL (8-23); Calcium 9.1 mg/dL (8.5-10.5); Carbon Dioxide 26 mmol/L (22-29); Chloride 92 mmol/L (98-107); Glomerular Filtration Rate 97.6 mL/min (90-130); Glucose 169 mg/dL (65-115); NT Pro B Type Natriuretic Pept 2912 pg/mL (0-125); Osmolality Calculated 279 mOsm/kg (285-295); Potassium 4.4 mmol/L (3.5-5.1); Sodium 132 mmol/L (136-145); Total Bilirubin 0.7 mg/dL (0.15-1.2); Total Protein 7.2 g/dL (6.6-8.7)
[2022-02-23 14:55] LABS: Slide Review Slide Review Perform
--- NOTE | 2022-02-23 15:43 | ECG_ITS ---
[facility] Test Date: 2022-02-23 Pat Name: Wai Kirkpatrick Department: Room: Gender: Male Department Administrator: : 1960 Requested By: Rocky Alas Order Number: [id number] Odell MD: Noreen Sexton M.D. Measurements Intervals [place] Rate: 89 P: 48 [place]: 168 QRS: -56 QRSD: 154 T: 110 QT: 436 QTc: 531 Interpretive Statements SINUS RHYTHM WITH OCCASIONAL VENTRICULAR PREMATURE COMPLEXES POSSIBLE LEFT ATRIAL ENLARGEMENT [-0.1mV P-WAVE IN V1/V2] LEFT AXIS DEVIATION [QRS AXIS < -30] LEFT BUNDLE BRANCH BLOCK POSSIBLE LATERAL MYOCARDIAL INFARCTION , OF INDETERMINATE AGE Compared to ECG 02/23/2022 14:18:36 Ventricular premature complex(es) now present Left-axis deviation now present Left bundle-branch block now present Myocardial infarct finding still present Electronically Signed On 02-24-2022 7:55:15 INSTRUMENTATION AND CONTROLS TECHNICIAN by Noreen Sexton M.D. [id number]
[2022-02-23 16:02] LABS: ABG PCO2 40.6 mmHg (35-45); Alveolar-Arterial Oxygen Gradi 11.5 mmHg (5-10); Base Excess ABG 0.5 mmol/L (-2.0-2.0); Blood Gas Operator Identificat AMH; Blood Gas Sample Site Brachial, left; Blood Gas Sample Type Arterial; Carboxyhemoglobin 1.3 %THgb (0.4-20.1); HCO3 ABG 25.4 mmol/L (22-26); Ionized Calcium Level - ABG 1.1 mmol/L (1.1-1.4); Methemoglobin 0.8 % (0.4-1.5); Oxygen Device NC; Oxygen Saturation ABG 91.9; PO2 ABG 60.4 mmHg (80.0-100.0); Potassium Level - ABG 4.1 mmol/L (3.5-5.0)
--- NOTE | 2022-02-23 16:10 | ECG_ITS ---
[facility] Test Date: 2022-02-23 Pat Name: Wai Kirkpatrick Department: Room: Gender: Male Certified Nurses' Aide: : 1960 Requested By: Rocky Alas Order Number: [id number] Jose R MD: Noreen Sexton M.D. Measurements Intervals [place] Rate: 94 P: 80 [place]: 168 QRS: 75 QRSD: 100 T: 91 QT: 337 QTc: 422 Interpretive Statements SINUS RHYTHM ANTEROSEPTAL MYOCARDIAL INFARCTION , OF INDETERMINATE AGE [40+ ms Q WAVE IN V1-V4] Compared to ECG 02/23/2022 15:56:54 Ventricular premature complex(es) no longer present Left-axis deviation no longer present Left bundle-branch block no longer present Myocardial infarct finding still present Electronically Signed On 02-24-2022 7:55:00 MATHEMATICS DEPARTMENT CHAIR by Noreen Sexton M.D. [id number]
[2022-02-23] MEDS: FUROsemide 10 mg/mL SDV 4mL 40 MG IVP ×2 (17:01→22:06)
[2022-02-23 17:07] LABS: Troponin 5 2HR 16.32 ng/L (0-15); Troponin 5 2HR Delta -2.68 ABS# (0-10)
[2022-02-23] MEDS: cefTRIAXone 2,000 MG in sodium chloride 0.9% (plus) 50 ML 100 MG IV (17:30)
[2022-02-23] MEDS: azithromycin 500 MG in sodium chloride 0.9% 250 ML 250 MG IV (18:17)
[2022-02-23 19:24] LABS: Adenovirus Not Detected (NOT DETECT); Chlamydia Pneumoniae Not Detected (NOT DETECT); Coronavirus 229E,HKU1,NL63,OC4 Not Detected (NOT DETECT); Human Metapneumovirus Not Detected (NOT DETECT); Human Rhinovirus/Enterovirus Not Detected (NOT DETECT); Influenza A Detected (NOT DETECT); Influenza A H1 Not Detected (NOT DETECT); Influenza A H1-2009 Detected (NOT DETECT); Influenza A H3 Not Detected (NOT DETECT); Influenza B Not Detected (NOT DETECT); Mycoplasma Pneumoniae Not Detected (NOT DETECT); Parainfluenza Virus Type 1 Not Detected (NOT DETECT); Parainfluenza Virus Type 2 Not Detected (NOT DETECT); Parainfluenza Virus Type 3 Not Detected (NOT DETECT); Parainfluenza Virus Type 4 Not Detected (NOT DETECT); Respiratory Syncytial Virus A Not Detected (NOT DETECT); Respiratory Syncytial Virus B Not Detected (NOT DETECT); SARS-COV-2 Not Detected (NOT DETECT)
[2022-02-23 19:33] LABS: Influenza A Detected (NOT DETECT); Influenza A H1 Not Detected (NOT DETECT); Influenza A H1-2009 Detected (NOT DETECT); Influenza A H3 Not Detected (NOT DETECT); Influenza B Not Detected (NOT DETECT); Results from GENMARK
--- NOTE | 2022-02-23 19:44 | PC.NURSE ---
First attempt to call and give report on this pt @ 1935. Remained on hold. unable to give report at this time. Will attempt at a later time.
--- NOTE | 2022-02-23 19:44 | PM.HP ---
Providers/Chief Complaint Admitting Physician: Jeb Helm MD Primary Care Provider: Luisa Andrews MD Chief Complaint: SOB History of Present Illness Wai Kirkpatrick is a 61 year old male who got tested positive for influenza A around Thanksgiving came in for worsening of shortness of breath. He has known diagnosis of COPD, does not use oxygen at home, recently quit smoking few weeks ago, presenting for worsening of shortness of breath at rest. Initially he was experiencing exertional dyspnea which has gradually gotten worse. Not noticed any fever, chest pain, nausea, vomiting or diarrhea. He is not vaccinated for flu or pneumococcal. Patient is endorsing vaccination to COVID-19. In the ER he has been diagnosed with bronchiectasis currently he is hypoxic requiring BiPAP to decrease work of breathing He has received ceftriaxone and azithromycin along Lasix and DuoNeb treatment and steroids in the ER Review of Systems Const: Reports: chills, body aches and fatigue Eyes: Denies: change in vision ENMT: Denies: throat pain Card: Reports: dyspnea on exertion; Denies: chest pain Resp: Reports: dyspnea and productive cough GI: Denies: abdominal pain : Denies: flank pain Musc: Reports: back pain Skin/Breast: Denies: rash Neuro: Denies: headache(s) Psych: Reports: anxiety Endo: Denies: polyuria Alfonso/Lymph: Denies: easy bruising All/Imm: Denies: urticaria Medications/Allergies Home Medications Medication Instructions Recorded Confirmed Last Taken Type albuterol sulfate 90 mcg/actuation 2 inh inhalation Q6H PRN shortness 02/05/22 02/23/22 Unknown Rx aerosol inhaler of breath or wheezing #8.5 grams carvedilol 6.25 mg tablet 6.25 mg PO BID #180 tabs 02/05/22 02/23/22 02/23/22 Rx nitroglycerin 0.4 mg sublingual 0.4 mg sublingual Q5M PRN chest 02/05/22 02/23/22 Unknown Rx tablet pain #60 tabs aspirin 325 mg tablet 325 mg PO DAILY 02/23/22 02/23/22 Unknown History atorvastatin 40 mg tablet 40 mg PO BEDTIME 02/23/22 02/23/22 02/22/22 History losartan 25 mg tablet 25 mg PO QAM 02/23/22 02/23/22 02/23/22 History ondansetron HCl 4 mg tablet 4 mg PO Q8H PRN Nausea And Vomiting 02/23/22 02/23/22 Unknown History oseltamivir 75 mg capsule 75 mg PO BID 02/23/22 02/23/22 02/22/22 History Allergies Allergy/AdvReac Type Severity Reaction Status Date / Time Penicillins Allergy Mild ALGY-Rash Verified 02/18/22 13:49 PFSH Acute PFSH: Medical History CAD (coronary artery disease) Diffuse large B-cell lymphoma, unspecified site HTN (hypertension) Spinal stenosis Surgical History H/O hand surgery Family History Father Heart disease Mother Heart disease Social History Smoking and tobacco status: current every day smoker cigarettes Packs smoked per day: 0.5 Years cigarettes smoked: 55 Second hand smoke exposure: No Alcohol intake: never Lives independently: Yes Household members: children Marital status: service: No Current occupational status: disabled History of recent travel: No Current gender identity: Male Special carlos needs: No Agree to transfusion: Yes Vitals/I&O/Wt Last Vital Signs Temp 98.1 F 02/23/22 12:03 Pulse 78 02/23/22 18:21 Resp 20 H 02/23/22 16:16 BP 140/68 02/23/22 16:16 Pulse Ox 94 02/23/22 18:21 O2 Del Method 02/23/22 18:21 O2 Flow Rate 2 02/23/22 16:16 FiO2 30 02/23/22 16:47 02/23/22 02/23/22 02/23/22 06:59 14:59 22:59 Intake Total 1050 / 1050 Balance 1050 / 1050 Weight last 48 hrs Weight 95.254 kg Physical Exam Narrative: Pleasant cooperative male Currently on BiPAP No active respiratory distress Awake and alert S1, S2 Abdomen soft Trace edema of legs Nonfocal neuro exam Pleasant and cooperative Clinically does not look extremely fluid overloaded No skin rash Data 02/23/22 14:07 02/23/22 14:07 A&P Assessment and plan (1) Influenza: (2) Diffuse large B-cell lymphoma, unspecified site: (3) HTN (hypertension): (4) COPD exacerbation: (5) Hypoxia: Plan Acute COPD exacerbation secondary to influenza A Continue bronchiectasis I would cover him with cefepime for now he has received ceftriaxone and azithromycin in the ER Currently on BiPAP No acute respiratory distress he was pretty calm on BiPAP Does not use oxygen at home Will need home O2 evaluation before discharge CT scan consistent with bronchiectasis without active consolidation Patient is not vaccinated to flu or pneumococcal, he will need vaccination Requested procalcitonin D-dimer to rule out PE DVT prophylaxis with Lovenox Cardiac diet Full code Patient lives alone, quit smoking 2 to 3 weeks ago, stating in case of an emergency daughter should be notified Attestations Medical Necessity Statement*: Anticipating discharge within 48 hours Time Spent in Patient Care: 40 Coding Level of Care Code Acute Department Assistant for Lizbeth Ordoñez Diagnoses Influenza J11.1 Diffuse large B-cell lymphoma, unspecified site C83.30 HTN (hypertension) I10 COPD exacerbation J44.1 Hypoxia R09.02
--- NOTE | 2022-02-23 20:02 | PC.NURSE ---
Second attempt to give report. Stated would get the assigned nurse to call back for report.
[2022-02-23 20:48] LABS: Troponin 5 6HR 16.39 ng/L (0-15)
[2022-02-23 20:52] LABS: Troponin 5 6HR Delta -2.61 ng/L (0-12)
[2022-02-23 21:34] LABS: Procalcitonin 0.27 ng/mL (0-0.5)
[2022-02-23] MEDS: cefepime 1,000 MG in sodium chloride 0.9% (plus) 50 ML 100 MG IV (22:06)
[2022-02-23] MEDS: enoxaparin 40 mg/0.4 mL Syringe SUBCUT (22:06)
[2022-02-24] VITALS (14 sets, daily range): BP systolic 108–124; BP diastolic 58–81; PULSE 70–101; RESP 12–28; TEMP 36.4–36.8; O2SAT 90–98
[2022-02-24 04:46] LABS: ABG PCO2 49.5 mmHg (35-45); Arterial Blood Gas Hematocrit 42.9 % (42-52); Base Excess ABG 4.3 mmol/L (-2.0-2.0); Blood Gas Allen Test Pos; Blood Gas Sample Type Arterial; HCO3 ABG 30.3 mmol/L (22-26); PO2 ABG 50.5 mmHg (80.0-100.0)
[2022-02-24 04:47] LABS: Blood Gas Operator Identificat ED; Blood Gas Sample Site Radial, right; Oxygen Device ROOM AIR
[2022-02-24] MEDS: losartan 50 mg Tablet 25 MG PO (05:28)
--- NOTE | 2022-02-24 05:41 | PC.NURSE ---
Referred pt to physician for review of cough w/medication for tx. Pt is tachycardic at this time d/t coughing. Physician notified. Awaiting orders.
[2022-02-24 05:51] LABS: Basophils # 0.1 10^3/uL (0.0-0.1); Basophils % 0.9 %; Hematocrit 46.3 % (42.0-52.0); Hemoglobin 15.2 g/dL (11.7-16.6); Lymphocytes % 13.4 %; Mean Corpuscular HGB Conc 32.8 g/dL (30.0-36.0); Mean Corpuscular Hemoglobin 30.5 pg (28.0-34.0); Mean Corpuscular Volume 92.8 fl (80-94); Monocytes # 1.1 10^3/uL (0.2-0.9); Monocytes % 14.7 %; Neutrophils # 5.24 10^3/uL (1.8-7.7); Neutrophils % 69.9 %; Nucleated Red Blood Cells % 0 %; Platelet Count 251 10^3/cmm (130-400); Red Blood Count 4.99 10^6/uL (4.1-5.3); Red Cell Distribution Width 12.4 % (12.1-15.1); White Blood Count 7.5 10^3/uL (4.0-10.0)
--- NOTE | 2022-02-24 06:00 | USCV_ITS ---
Wai Kirkpatrick Age: 61 Gender: M : 1960 Exam Date: 02/24/2022 12:58 Ordering Phys: Peter Barry MD Technologist: LITO [place] [facility] [place]: CHF BP: 108 / 68 HR: 56 Rhythm: Sinus Technical Quality: Adequate MEASUREMENTS (Male / Female) Normal Values 2D ECHO LV Diastolic Diameter PLAX 5.7 cm 4.2 - 5.9 / 3.9 - 5.3 cm LV Systolic Diameter PLAX 5.2 cm IVS Diastolic Thickness 0.7 cm 0.6 - 1.0 / 0.6 - 0.9 cm IVS Systolic Thickness 0.9 cm LVPW Diastolic Thickness 0.7 cm 0.6 - 1.0 / 0.6 - 0.9 cm LVPW Systolic Thickness 0.9 cm LVOT Diameter 2.3 cm LV Ejection Fraction 2D Teich 18.8 % LV Ejection Fraction MOD 2C 43.4 % LV Ejection Fraction 2C AL 42.4 % LA Diameter 3.5 cm IVC Diameter 1.9 cm M-MODE Aortic Annulus Diameter 3.3 cm LA Ao Ratio MM 1.0 MV E Point Septal Separation 1.6 cm DOPPLER AV Peak Velocity 130.0 cm/s LVOT Peak Velocity 81.0 cm/s AV Area Cont Eq vti 2.5 cm squared AV Area Cont Eq pk 2.6 cm squared MV Area PHT 5.0 cm squared Mitral E to A Ratio 0.7 MV E' Velocity 33.5 cm/s Mitral E to MV E' Ratio 7.1 Mitral E to LV E' Lateral Ratio 5.3 Mitral E to LV E' Septal Ratio 11.3 TR Peak Velocity 201.0 cm/s TR Peak Gradient 16.2 mmHg TV Peak E Velocity 55.0 cm/s FINDINGS Left Ventricle Left ventricle is mildly dilated. LV systolic function is moderate to severely reduced with EF of 30 to 35%. Moderate global hypokinesis is seen. Moderate to severe hypokinesis of apical wall is noted. Grade 1 diastolic dysfunction Right Ventricle Normal in size and function Right Atrium Normal in size Left Atrium Normal in size Mitral Valve Structurally normal mitral valve. Trace mitral regurgitation. Aortic Valve Not well-visualized. No significant stenosis or regurgitation. Tricuspid Valve Grossly normal. Pulmonic Valve Not well-visualized Pericardium Normal Aorta Normal in size IVC IVC appears to be normal CONCLUSIONS Technically limited quality echocardiogram because of poor ultrasonic windows. The left ventricle is mildly dilated. LV systolic function is moderate to severely reduced with EF of 30 to 35%. Moderate global hypokinesis. Moderate to severe hypokinesis of apical wall is noted. Grade 1 diastolic dysfunction Trace mitral regurgitation. Valvular structures are not very well visualized however grossly normal. Compared to prior echocardiogram from 2014, LV systolic function has significantly decreased and EF is now 30-35% (from baseline of 50% then) Pedro Pablo Pepper MD (Electronically Signed) Final Date: 25 February 2022 10:27 S
[2022-02-24 06:10] LABS: D Dimer 1.93 ug/mIFEU (0-0.59)
--- NOTE | 2022-02-24 06:12 | CTR_ITS ---
PROCEDURE INFORMATION: Exam: CTA Chest With Contrast Exam date and time: 02/24/2022 2:51 PM Age: 61 years old Clinical indication: Shortness of breath; Additional info: Tachycardia/sob TECHNIQUE: Imaging protocol: Computed tomographic angiography of the chest with contrast. 3D rendering (Not supervised by radiologist): MIP and/or 3D reconstructed images were created by the technologist. Radiation optimization: All CT scans at this facility use at least one of these dose optimization techniques: automated exposure control; mA and/or kV adjustment per patient size (includes targeted exams where dose is matched to clinical indication); or iterative reconstruction. Contrast material: OMNIPAQUE 350; Contrast volume: 83 ml; Contrast route: INTRAVENOUS (IV); COMPARISON: CT chest wo con [id number] 02/23/2022 2:36 PM RADIATION DOSE METRICS: Total DLP (mGy-cm): 480.21 FINDINGS: Pulmonary arteries: Normal. No pulmonary emboli. Aorta: Unremarkable. No aortic aneurysm. No aortic dissection. Lungs: Somewhat diffuse tree-in-bud type reticulonodular densities may reflect an atypical mycobacterial infection. Pleural spaces: Unremarkable. No pneumothorax. No pleural effusion. Heart: Coronary artery atherosclerotic calcifications. Cardiomegaly. Small localized anterior pericardial effusion measuring up to 7.8 mm. Lymph nodes: Scattered prominent subcentimeter short axis nonspecific mediastinal lymph nodes. Stomach and bowel: Diverticulosis without diverticulitis. Bones/joints: Unremarkable. No acute fracture. Soft tissues: Unremarkable. CT/CT angio chest PE protcl [id number] IMPRESSION: 1. Somewhat diffuse tree-in-bud type reticulonodular densities may reflect an atypical mycobacterial infection. 2. Coronary artery atherosclerotic calcifications. 3. Cardiomegaly. 4. Small localized anterior pericardial effusion measuring up to 7.8 mm. 5. Diverticulosis without diverticulitis. 6. Scattered prominent subcentimeter short axis nonspecific mediastinal lymph nodes. 7. Negative for pulmonary embolus.
[2022-02-24 06:18] LABS: Anion Gap 13.7 (5-19); Blood Urea Nitrogen 22 mg/dL (8-23); C Reactive Protein 315.6 mg/L (0.0-4.9); Calcium 9.3 mg/dL (8.5-10.5); Carbon Dioxide 31 mmol/L (22-29); Chloride 97 mmol/L (98-107); Glomerular Filtration Rate 85.2 mL/min (90-130); Glucose 198 mg/dL (65-115); Magnesium 2.6 mg/dL (1.7-2.3); Osmolality Calculated 293 mOsm/kg (285-295); Potassium 4.7 mmol/L (3.5-5.1); Sodium 137 mmol/L (136-145)
--- NOTE | 2022-02-24 06:22 | PC.NURSE ---
NO received from Dr. Perea to administered Cardizem 15mg IVP for a-fib w/RVR per EKG results. Prior to this nurse administering Cardizem pt converted out of RVR, Dr. Perea notified. NO received and noted for CTA.
[2022-02-24 06:39] LABS: Slide Review Slide Review Perform
[2022-02-24] MEDS: budesonide 0.5 mg/2 mL Neb INHALATION ×2 (08:57→20:33)
[2022-02-24] MEDS: ipratropium-albuterol 3 mL Neb INHALATION ×2 (08:57→20:33)
[2022-02-24] MEDS: enoxaparin 100 mg/mL Syringe 95 MG SUBCUT ×2 (09:10→21:40)
[2022-02-24] MEDS: oseltamivir phosphate 75 mg Capsule PO ×2 (09:11→17:29)
[2022-02-24] MEDS: cefepime 1,000 MG in sodium chloride 0.9% (plus) 50 ML 100 MG IV ×2 (09:11→21:41)
[2022-02-24] MEDS: aspirin 325 mg Tablet PO (09:11)
[2022-02-24] MEDS: carvedilol 6.25 mg Tablet PO ×2 (09:14→22:32)
--- NOTE | 2022-02-24 11:33 | PM.PN ---
Subjective Subjective: He is doing slightly better. He states he now can take some breaths. Before he was significantly dyspneic. He normally does not wear oxygen at home. He has so far come down on oxygen requirement, saturations 92-93% on room air. Still having a wheeze. Still coughing, producing quite a bit of phlegm. Vitals/I&O/Wt Last Vital Signs Temp 97.9 F 02/24/22 11:16 Pulse 72 02/24/22 11:16 Resp 12 02/24/22 11:16 BP 108/68 02/24/22 11:16 Pulse Ox 90 02/24/22 11:16 O2 Del Method 02/24/22 11:16 O2 Flow Rate 2 02/23/22 16:16 FiO2 30 02/24/22 04:41 02/23/22 02/24/22 02/24/22 22:59 06:59 14:59 Intake Total 1590 / 1590 290 / 290 Output Total 375 / 375 Balance 1590 / 1590 -375 / 1215 290 / 290 Weight last 48 hrs Weight 95.254 kg Physical Exam Const: COMMON NORMALS: patient oriented x3 and alert GENERAL APPEARANCE: cooperative ORIENTATION/CONSCIOUSNESS: Yes awake HENMT: COMMON NORMALS: oropharynx normal Neck/C-Spine: COMMON NORMALS: no JVD Resp: COMMON NORMALS: normal respiratory effort AUSCULTATION: wheezes left upper Cardio: COMMON NORMALS: no JVD, regular rhythm, S1 normal heart sound present, S2 normal heart sound present and No murmurs present (Cardio) RHYTHM: regular rhythm HEART SOUNDS: S1 normal heart sound present and S2 normal heart sound present GI: COMMON NORMALS: Normal to inspection, nondistended, normoactive bowel sounds present, Soft to palpation and non-tender PALPATION: Yes Soft to palpation Extremity: COMMON NORMALS: no joint enlargement and no pedal edema Neuro: COMMON NORMALS: patient oriented x3 and moves all extremities SENSORIUM/ORIENTATION: Yes alert Skin: COMMON NORMALS: no rashes or lesions noted GENERAL SKIN EXAM: no rashes or lesions noted Data 02/24/22 05:38 02/24/22 05:38 A&P Assessment and plan (1) Influenza: Continue Tamiflu. Suspicion for superimposed bacterial pneumonia with productive cough, pneumonia on imaging. Collect sputum culture, MRSA PCR, urine bacterial antigens. Continue cefepime, azithromycin empirically for now. So far weaning down on oxygen requirement. Currently down to room air 92-93%. Still dyspnea, but slowly getting better. (2) Diffuse large B-cell lymphoma, unspecified site: (3) HTN (hypertension): (4) COPD exacerbation: (5) Hypoxia: (6) Atrial fib/flutter, transient: So far has converted to SR. No history of A. fib. Discussed with him, triggered likely secondary to pneumonia. Does have history of CAD, noted transient LBBB on EKG. Discussed with him concern for possibility of progression of CAD. He is chest pain-free. TTE is pending. Discussed with him additional assessment, may be with stress test after recovering from respiratory illness. Check TSH Plan Noted bronchiectasis on imaging Patient is not vaccinated to flu or pneumococcal, he will need vaccination D-dimer elevated: Pending CTA to assess for PE. Assess venous duplex for DVT. DVT prophylaxis with Lovenox Cardiac diet Full code Patient lives alone, quit smoking 2 to 3 weeks ago, stating in case of an emergency daughter should be notified Attestations Medical Necessity Statement*: Continue hospitalization assessment and of influenza pneumonia, superimposed bacterial pneumonia, with underlying bronchiectasis, new onset A. fib, history of CAD. Coding Level of Care Code Acute Refinery Operator Light Ends Recovery for [facility] Fwd Diagnoses Influenza J11.1 Diffuse large B-cell lymphoma, unspecified site C83.30 HTN (hypertension) I10 COPD exacerbation J44.1 Hypoxia R09.02 Atrial fib/flutter, transient
--- NOTE | 2022-02-24 11:37 | USR_ITS ---
PROCEDURE INFORMATION: Exam: US Duplex Lower Extremity Veins, Bilateral Exam date and time: 02/24/2022 1:39 PM Age: 61 years old Clinical indication: Other: Shortness of breath; Additional info: Assess for dvt TECHNIQUE: Imaging protocol: Real-time Duplex ultrasound of the bilateral extremities with 2-D shetty scale, color Doppler flow and spectral waveform analysis with image documentation. Complete exam focused on the bilateral lower extremity veins. COMPARISON: No relevant prior studies available. FINDINGS: Right deep veins: Unremarkable. The common femoral, femoral, proximal profunda femoral and popliteal veins are patent without thrombus. Normal Doppler waveforms. Normal compressibility and/or augmentation response. Right superficial veins: Saphenofemoral junction is patent without thrombus. Left deep veins: Unremarkable. The common femoral, femoral, proximal profunda femoral and popliteal veins are patent without thrombus. Normal Doppler waveforms. Normal compressibility and/or augmentation response. Left superficial veins: Saphenofemoral junction is patent without thrombus. Soft tissues: Unremarkable. US/CV venous duplex [facility] [id number] IMPRESSION: No evidence of deep vein thrombosis.
[2022-02-24 11:53] LABS: Thyroid Stimulating Hormone 0.51 uIU/mL (0.27-4.20)
[2022-02-24] MEDS: iohexol 350 mg/mL 500 mL Btl (per mL) IV (14:53)
--- NOTE | 2022-02-24 18:08 | PC.NURSE ---
Patient resting in bed, oobtc and bathroom throughout shift, patient has had multiple coughing episodes during shift but mostly when he talks. Family at bedside throughout shift, VSS on oxygen, continues to remove telemetry after nurse applies. No c/o pain or discomfort other than the coughing. AAOx4, room clean and clutter free with call light in reach. All questions and concerns addressed throughout the shift. Will continue to monitor until nurse handoff at shift change.
[2022-02-24] MEDS: FUROsemide 10 mg/mL SDV 4mL 40 MG IVP (21:43)
[2022-02-25] VITALS (7 sets, daily range): BP systolic 119–138; BP diastolic 62–76; PULSE 63–74; RESP 15–19; TEMP 36.6; O2SAT 90–94
[2022-02-25] MEDS: losartan 50 mg Tablet 25 MG PO (05:12)
[2022-02-25 06:14] LABS: Basophils % 0.3 %; Hematocrit 43.8 % (42.0-52.0); Hemoglobin 14.3 g/dL (11.7-16.6); Lymphocytes % 16.7 %; Mean Corpuscular HGB Conc 32.6 g/dL (30.0-36.0); Mean Corpuscular Hemoglobin 29.9 pg (28.0-34.0); Mean Corpuscular Volume 91.6 fl (80-94); Mean Platelet Volume 10.1 fL (7.4-10.4); Monocytes # 1.4 10^3/uL (0.2-0.9); Monocytes % 11.7 %; Neutrophils # 8.32 10^3/uL (1.8-7.7); Neutrophils % 70.4 %; Nucleated Red Blood Cells % 0 %; Platelet Count 294 10^3/cmm (130-400); Red Blood Count 4.78 10^6/uL (4.1-5.3); Red Cell Distribution Width 12.4 % (12.1-15.1); White Blood Count 11.8 10^3/uL (4.0-10.0)
[2022-02-25 06:28] LABS: Alanine Aminotransferase 128 U/L (0-41); Albumin Level 2.9 g/dL (3.5-5.2); Alkaline Phosphatase 96 U/L (40-130); Anion Gap 13.1 (5-19); Aspartate Amino Transferase 100 U/L (0-40); Blood Urea Nitrogen 28 mg/dL (8-23); Carbon Dioxide 31 mmol/L (22-29); Chloride 95 mmol/L (98-107); Globulin 3.7 g/dL (1.3-4.6); Glomerular Filtration Rate 97.6 mL/min (90-130); Glucose 184 mg/dL (65-115); Osmolality Calculated 290 mOsm/kg (285-295); Potassium 4.1 mmol/L (3.5-5.1); Sodium 135 mmol/L (136-145); Total Bilirubin 0.3 mg/dL (0.15-1.2); Total Protein 6.6 g/dL (6.6-8.7)
[2022-02-25] MEDS: budesonide 0.5 mg/2 mL Neb INHALATION (08:25)
[2022-02-25] MEDS: ipratropium-albuterol 3 mL Neb INHALATION (08:25)
[2022-02-25] MEDS: cefepime 1,000 MG in sodium chloride 0.9% (plus) 50 ML 100 MG IV (08:45)
[2022-02-25] MEDS: aspirin 325 mg Tablet PO (08:45)
[2022-02-25] MEDS: oseltamivir phosphate 75 mg Capsule PO (08:45)
[2022-02-25] MEDS: enoxaparin 100 mg/mL Syringe 95 MG SUBCUT (08:45)
[2022-02-25] MEDS: carvedilol 6.25 mg Tablet PO (08:55)
--- NOTE | 2022-02-25 11:28 | PC.NURSE ---
Resumed care of patient this AM, patient found resting in bed on RA with oxygen levels WNL, room clean and clutter free and call light in reach. Patient had a cup full of sputem on bedside, disposed of it appropriately and got patient a new cup. Updated whiteboard. During morning assessment patient found in restroom, had a BM, coughing and sob, patient was tachypenic but oxygen saturations wnl. Patient had a few cups of coffee at bedside with a several liquid drinks. Educated patient of risk of fluid overload with current conditions however patient was not interested in education. Patient AAOx4, see chart for current VS, patient resistant to taking morning medications but did end up taking them. Patient removed telemetry unit, this nurse replaced but has been removed again since then. Patient stated, you can go get me a big joint. this nurse explained that he can't smoke in the hospital and he stated, yeah I bet. Room remains clean and clutter free with call light in reach. Family with children at bedside. Will continue to monitor.
--- NOTE | 2022-02-25 13:55 | P.CONIM_ITS ---
Providers/Reason For Consult Consulting Physician/Specialty*: Pedro Pablo Pepper MD/ Cardiology Reason for Consult*: LV dysfunction Requesting Physician: Dr Lay Attending Physician: Rich Lay Primary Care Provider: Luisa Andrews MD History of Present Illness History of Present Illness Wai Kirkpatrick is a 61 year old male with past medical history of CAD, COPD who presented to the hospital with influenza and respiratory distress. He has likely superimposed bacterial pneumonia. Patient denies chest pain. However dyspnea on exertion is significant. Echocardiogram shows significant drop of LV function with EF of 30 to 35% compared with 50% at baseline. EKG shows normal sinus rhythm with no significant ST-T wave changes. Troponins did not increase significantly. Patient had new onset A. fib with RVR. He has converted back to normal sinus rhythm now. Review of Systems Const: Reports: chills, body aches and fatigue Eyes: Denies: change in vision ENMT: Denies: throat pain Card: Reports: dyspnea on exertion; Denies: chest pain Resp: Reports: dyspnea and productive cough GI: Denies: abdominal pain : Denies: flank pain Musc: Reports: back pain Skin/Breast: Denies: rash Neuro: Denies: headache(s) Psych: Reports: anxiety Endo: Denies: polyuria Alfonso/Lymph: Denies: easy bruising All/Imm: Denies: urticaria Medications/Allergies Home Medications Medication Instructions Recorded Confirmed Last Taken Type albuterol sulfate 90 mcg/actuation 2 inh inhalation Q6H PRN shortness 02/05/22 02/23/22 Unknown Rx aerosol inhaler of breath or wheezing #8.5 grams carvedilol 6.25 mg tablet 6.25 mg PO BID #180 tabs 02/05/22 02/23/22 02/23/22 Rx nitroglycerin 0.4 mg sublingual 0.4 mg sublingual Q5M PRN chest 02/05/22 02/23/22 Unknown Rx tablet pain #60 tabs atorvastatin 40 mg tablet 40 mg PO BEDTIME 02/23/22 02/23/22 02/22/22 History losartan 25 mg tablet 25 mg PO QAM 02/23/22 02/23/22 02/23/22 History ondansetron HCl 4 mg tablet 4 mg PO Q8H PRN Nausea And Vomiting 02/23/22 02/23/22 Unknown History oseltamivir 75 mg capsule 75 mg PO BID 02/23/22 02/23/22 02/22/22 History apixaban 5 mg tablet (Eliquis) 5 mg PO BID #180 tabs 02/25/22 Unknown Rx aspirin 81 mg tablet,delayed 81 mg PO DAILY #90 tabs 02/25/22 Unknown Rx release dapagliflozin 10 mg tablet 10 mg PO DAILY #90 tabs 02/25/22 Unknown Rx furosemide 40 mg tablet 20 mg PO QAM PRN edema #90 tabs 02/25/22 Unknown Rx Allergies Allergy/AdvReac Type Severity Reaction Status Date / Time Penicillins Allergy Mild ALGY-Rash Verified 02/18/22 13:49 Current Medications Generic Name Dose Route Start Last Admin Trade Name Freq PRN Reason Stop Dose Admin Albuterol/Ipratropium 3 ml 02/23/22 21:12 02/25/22 08:25 Ipratropium-Albuterol 3 Ml Neb INHALATION 3 ml Q6H PRN Administration SHORTNESS OF BREATH Aspirin 325 mg 02/24/22 09:00 02/25/22 08:45 Aspirin 325 Mg Tablet PO 325 mg DAILY MADIHA Administration Budesonide 0.5 mg 02/23/22 21:12 02/25/22 08:25 Budesonide 0.5 Mg/2 Ml Neb INHALATION 0.5 mg BID.RESPIRATORY MADIHA Administration Carvedilol 6.25 mg 02/24/22 09:00 02/25/22 08:55 Carvedilol 6.25 Mg Tablet PO 6.25 mg BID@0900,2100 MADIHA Administration Enoxaparin Sodium 95 mg 02/24/22 08:00 02/25/22 08:45 Enoxaparin 100 Mg/Ml Syringe SUBCUT 95 mg Q12H MADIHA Administration Furosemide 40 mg 02/23/22 21:12 02/24/22 21:43 Furosemide 10 Mg/Ml Sdv 4ml IVP 40 mg Q24H MADIHA Administration Cefepime HCl 1,000 mg/ Sodium 50 mls @ 100 mls/hr 02/23/22 21:12 02/25/22 09:30 Chloride IV Infused Q12H MADIHA Infusion Protocol Losartan Potassium 25 mg 02/24/22 06:00 02/25/22 05:12 Losartan 50 Mg Tablet PO 25 mg QAM MADIHA Administration Oseltamivir Phosphate 75 mg 02/24/22 09:00 02/25/22 08:45 Oseltamivir Phosphate 75 Mg Capsule PO 75 mg BID MADIHA Administration PFSH Acute PFSH: Medical History CAD (coronary artery disease) Diffuse large B-cell lymphoma, unspecified site HTN (hypertension) Spinal stenosis Surgical History H/O hand surgery Family History Father Heart disease Mother Heart disease Social History Smoking and tobacco status: current every day smoker cigarettes Packs smoked per day: 0.5 Years cigarettes smoked: 55 Second hand smoke exposure: No Alcohol intake: never Lives independently: Yes Household members: children Marital status: service: No Current occupational status: disabled History of recent travel: No Current gender identity: Male Special carlos needs: No Agree to transfusion: Yes Vitals/I&O/Wt Last Vital Signs Temp 97.8 F 02/25/22 12:00 Pulse 64 02/25/22 12:00 Resp 15 02/25/22 12:00 BP 119/62 02/25/22 12:00 Pulse Ox 93 02/25/22 13:30 O2 Del Method 02/25/22 12:00 O2 Flow Rate 2 02/23/22 16:16 FiO2 30 02/24/22 04:41 02/24/22 02/25/22 02/25/22 22:59 06:59 14:59 Intake Total 530 / 1300 250 / 250 Balance 530 / 1300 250 / 250 Physical Exam Narrative: GENERAL: Patient is alert, awake and oriented x3. [] NECK: No jugular vein distension. [] HEENT: No cyanosis. No icterus. No pallor. [] HEART: Regular S1 and S2. No murmur, rub or gallop. [] LUNGS: Clear to auscultate bilaterally. [] ABDOMEN: Soft, nontender and nondistended. Positive bowel sounds. No guarding, rebound or tenderness. [] CENTRAL NERVOUS SYSTEM: Grossly nonfocal. [] EXTREMITIES: Lower extremities with 1+ edema bilaterally. Pulses palpable in the lower extremities, both dorsalis pedis and posterior tibial. [] Data 02/25/22 05:53 02/25/22 05:53 Micro: Microbiology 02/24/22 12:42 Gram Stain - Final Sputum - Expectorated Sputum Sputum Culture - Preliminary 02/24/22 15:36 Legionella Urinary Antigen - Final Urine,Voided Bacterial Antigens - Final A&P Assessment and plan (1) Atrial fib/flutter, transient: (2) CAD (coronary artery disease): (3) HTN (hypertension): (4) COPD exacerbation: (5) LV dysfunction: Plan Patient has presented with influenza with possible superimposed bacterial pneumonia. Treatment per medicine team. LV dysfunction is new. He also had transient A. fib with RVR. Given his history of CAD, new drop in LV function, we will proceed with coronary angiogram with possible PCI. Disease stable at this time and recovering from pneumonia, it can be done as outpatient. Discussed with the patient and he prefers to have the procedure performed as outpatient. He will have close follow-up with cardiology office. Continue Eliquis for stroke prevention given his recent A. fib. Continue aspirin, losartan and beta-christiano. Low-sodium diet advised Thank you for involving us in the care of this patient. Please call with questions. Consult Attestations Medical Necessity Statement: Care expected to cross 2 midnights. Coding Level of Care Code Acute Warehouse Handler for [facility]beth [facility]do[facility]ez Diagnoses Atrial fib/flutter, transient CAD (coronary artery disease) I25.10 HTN (hypertension) I10 COPD exacerbation J44.1 LV dysfunction I51.9
--- NOTE | 2022-02-25 15:21 | P.DS_ITS ---
Discharge Providers Date of Admission: 02/24/22 18:02 Date of Discharge: February 25, 2022 Attending Provider at Admission: Jeb Helm MD Attending Provider at Discharge: Rich Lay Primary Care Provider: Luisa Andrews MD Diagnoses at Discharge Discharge Diagnosis (1) Influenza: Status: Acute (2) Diffuse large B-cell lymphoma, unspecified site: Status: Acute (3) HTN (hypertension): Status: Acute (4) COPD exacerbation: Status: Acute (5) Hypoxia: Status: Acute (6) Atrial fib/flutter, transient: Status: Acute Reason for Visit Reason for Visit: SOB Hospital Course Hospital Course Pleasant 61-year-old gentleman diagnosed with influenza A around ving was given prescription for Tamiflu, also with history of COPD, not normally using oxygen at home, also recently had quit smoking, presented to the hospital due to worsening shortness of breath including at rest, which was getting progressively worse. With cough productive of beige-colored sputum. In ER on CT noted to have underlying bronchiectasis as well as patchy tree-in-bud micronodular infiltrates throughout both lungs prominent in the perihilar regions right greater than left lower lobes. Diagnosed with superimposed bacterial pneumonia on top of influenza pneumonia. On presentation shortly after admission also found to have new onset A. fib with RVR in which he remained briefly, converted back to sinus prior to receiving additional medication. D-dimer noted elevated, CTA performed with no PE. Noted cardiomegaly. Small localized anterior pericardial effusion. Scattered prominent subcentimeter short axis nonspecific mediastinal lymph nodes. In the hospital was treated with oseltamavir, cefepime, azithromycin. She gradually improved subjectively and intraoperative oxygenation, initially requiring 2 L nasal cannula oxygen after which it weaned off. Also received a dose of Lasix. Echocardiogram was obtained, and it appears at least in part his dyspnea was also secondary to decrease in ejection fraction compared to prior 50%, on current echocardiogram noted EF 30-35%. Moderate to severe hypokinesis of apical wall noted. Otherwise moderate global hypokinesis. Grade 1 diastolic dysfunction. He was chest pain-free. Mild troponin elevation noted on presentation. He was assessed by cardiology. On discussion of findings, his condition, he and cardiology agreed for follow-up after discharge with plans for additional assessment with coronary angiogram due to his history of CAD in the past, previous stenting to assess for progression of chronic disease as possible contributing factor to decreasing cardiomyopathy. He is asked to continue aspirin 81 mg, decreased from 325 if he is also started on Eliquis for stroke risk reduction with atrial fibrillation. Continue statin, beta-christiano, ARB. He is started on dapagliflozin. Lasix as needed. Please assist him with quitting smoking. Physical Exam Const: COMMON NORMALS: patient oriented x3 and alert GENERAL APPEARANCE: cooperative ORIENTATION/CONSCIOUSNESS: Yes awake HENMT: COMMON NORMALS: oropharynx normal Neck/C-Spine: COMMON NORMALS: no JVD Resp: COMMON NORMALS: normal respiratory effort and clear to auscultation bilaterally AUSCULTATION: clear to auscultation bilaterally Cardio: COMMON NORMALS: no JVD, regular rhythm, S1 normal heart sound present, S2 normal heart sound present and No murmurs present (Cardio) RHYTHM: regular rhythm HEART SOUNDS: S1 normal heart sound present and S2 normal heart sound present GI: COMMON NORMALS: Normal to inspection, nondistended, normoactive bowel sounds present, Soft to palpation and non-tender PALPATION: Yes Soft to palpation Extremity: COMMON NORMALS: no joint enlargement and no pedal edema Neuro: COMMON NORMALS: patient oriented x3 and moves all extremities S ENSORIUM/ORIENTATION: Yes alert Skin: COMMON NORMALS: no rashes or lesions noted GENERAL SKIN EXAM: no rash es or lesions noted Discharge Data Studies Completed and Pending Completed Studies During Hospitalization Category Date Time Status CT chest wo con [id number] Stat Cat Scan 02/23/22 14:31 Completed CTA chest [CT angio chest PE protcl [id number]] NOW Cat Scan 02/24/22 06:12 Completed XR chest 1V portable [id number] Stat Exams 02/23/22 13:13 [place] [id number] Routine Ultrasound 02/24/22 11:37 Completed CV. echo complete* [id number] Routine Ultrasound 02/24/22 06:00 Completed Pending at discharge Category Date Time Status Sputum Culture and Gram Stain Routine Lab 02/24/22 12:42 Results Radiology Impressions Chest X-Ray 02/23/22 13:13 IMPRESSION: 1. There is mild peribronchial wall thickening; query viral infection/bronchitis, chronic bronchitis and/or asthma. 2. Possible small nodules in the lower right chest. 3. Recommend CT chest to better characterize. Chest CT 02/23/22 14:31 IMPRESSION: 1. Patchy tree-in-bud micronodular infiltrates throughout both lungs more prominent in the perihilar regions and RIGHT greater than LEFT lower lobes. Ass ociated bronchiectasis. Recommend correlation for pneumonitis. 2. No focal consolidation or pleural fluid. 3. A few prominent LEFT peribronchial and hilar lymph nodes likely reactive. 4. Coronary calcification. 5. No other acute findings. Chest CTA 02/24/22 06:12 IMPRESSION: 1. Somewhat diffuse tree-in-bud type reticulonodular densities may reflect an atypical mycobacterial infection. 2. Coronary artery atherosclerotic calcifications. 3. Cardiomegaly. 4. Small localized anterior pericardial effusion measuring up to 7.8 mm. 5. Diverticulosis without diverticulitis. 6. Scattered prominent subcentimeter short axis nonspecific mediastinal lymph nodes. 7. Negative for pulmonary embolus. Venous Duplex 02/24/22 11:37 IMPRESSION: No evidence of deep vein thrombosis. Laboratory Results WBC 11.8 10^3/uL (4.0-10.0) H 02/25/22 05:53 RBC 4.78 10^6/uL (4.1-5.3) 02/25/22 05:53 Hgb 14.3 g/dL (11.7-16.6) 02/25/22 05:53 Hct 43.8 % (42.0-52.0) 02/25/22 05:53 MCV 91.6 fl (80-94) 02/25/22 05:53 MCH 29.9 pg (28.0-34.0) 02/25/22 05:53 MCHC 32.6 g/dL (30.0-36.0) 02/25/22 05:53 RDW 12.4 % (12.1-15.1) 02/25/22 05:53 Plt Count 294 10^3/cmm (130-400) 02/25/22 05:53 MPV 10.1 fL (7.4-10.4) 02/25/22 05:53 Neut % (Auto) 70.4 % 02/25/22 05:53 Lymph % (Auto) 16.7 % 02/25/22 05:53 [place] % (Auto) 11.7 % 02/25/22 05:53 Eos % (Auto) 0.0 % 02/25/22 05:53 Baso % (Auto) 0.3 % 02/25/22 05:53 Neut # (Auto) 8.32 10^3/uL (1.8-7.7) H 02/25/22 05:53 Lymph # (Auto) 2.0 10^3/uL (0.8-4.8) 02/25/22 05:53 [place] # (Auto) 1.4 10^3/uL (0.2-0.9) H 02/25/22 05:53 Eos # (Auto) 0.0 10^3/uL (0.0-0.8) 02/25/22 05:53 Baso # (Auto) 0.0 10^3/uL (0.0-0.1) 02/25/22 05:53 Nucleated RBC % (auto) 0 % 02/25/22 05:53 Nucleated RBCs # 0.0 /100WBC 02/25/22 05:53 D-Dimer 1.93 ug/mIFEU (0-0.59) H 02/24/22 05:38 Specimen Type Arterial 02/24/22 04:37 Sample Site Radial, right 02/24/22 04:37 ABG pH 7.40 (7.35-7.45) 02/24/22 04:37 ABG pCO2 49.5 mmHg (35-45) H 02/24/22 04:37 ABG pO2 50.5 mmHg (80.0-100.0) L 02/24/22 04:37 ABG HCO3 30.3 mmol/L (22-26) H 02/24/22 04:37 ABG O2 Saturation 91.9 02/23/22 15:51 ABG Base Excess 4.3 mmol/L (-2.0-2.0) H 02/24/22 04:37 Arik Test Pos 02/24/22 04:37 A-a O2 Gradient 11.5 mmHg (5-10) H 02/23/22 15:51 Hematocrit 42.9 % (42-52) 02/24/22 04:37 Hgb O2 Saturation 90.0 % (95-100) L 02/23/22 15:51 Carboxyhemoglobin 1.3 %THgb (0.4-20.1) 02/23/22 15:51 Methemoglobin 0.8 % (0.4-1.5) 02/23/22 15:51 Total Hemoglobin 15.0 g/dL (14-18) 02/23/22 15:51 Sodium 133.0 mmol/L (131-143) 02/23/22 15:51 Potassium 4.1 mmol/L (3.5-5.0) 02/23/22 15:51 Glucose 179.0 mg/dL (70-115) H 02/23/22 15:51 Ionized Calcium 1.1 mmol/L (1.1-1.4) 02/23/22 15:51 O2 Delivery Device Room air 02/24/22 04:37 O2 Liters/Min 2.0 % 02/23/22 15:51 FiO2 21.0 % 02/24/22 04:37 [employer] ID Ed 02/24/22 04:37 Sodium 135 mmol/L (136-145) L 02/25/22 05:53 Potassium 4.1 mmol/L (3.5-5.1) 02/25/22 05:53 Chloride 95 mmol/L (98-107) L 02/25/22 05:53 Carbon Dioxide 31 mmol/L (22-29) H 02/25/22 05:53 Anion Gap 13.1 (5-19) 02/25/22 05:53 BUN 28 mg/dL (8-23) H 02/25/22 05:53 Creatinine 0.8 mg/dL (0.7-1.2) 02/25/22 05:53 GFR Calculation 97.6 mL/min (90-130) 02/25/22 05:53 Glucose 184 mg/dL (65-115) H 02/25/22 05:53 Calculated Osmolality 290 mOsm/kg (285-295) 02/25/22 05:53 Calcium 9.0 mg/dL (8.5-10.5) 02/25/22 05:53 Magnesium 2.6 mg/dL (1.7-2.3) H 02/24/22 05:38 Total Bilirubin 0.3 mg/dL (0.15-1.2) 02/25/22 05:53 AST 100 U/L (0-40) H 02/25/22 05:53 ALT 128 U/L (0-41) H 02/25/22 05:53 Alkaline Phosphatase 96 U/L (40-130) 02/25/22 05:53 Troponin T Baseline 19 ng/L (0-15) H 02/23/22 14:07 Troponin T 120 Minute 16.32 ng/L (0-15) H 02/23/22 16:12 Delta Troponin T -2.68 ABS# (0-10) L 02/23/22 16:12 Troponin T Hi Sens 6Hr 16.39 ng/L (0-15) H 02/23/22 19:58 Troponin T Hi Sens 6Hr Delta -2.61 ng/L (0-12) L 02/23/22 19:58 C-Reactive Protein 315.6 mg/L (0.0-4.9) H 02/24/22 05:38 NT-Pro-B Natriuret Pep 2912 pg/mL (0-125) H 02/23/22 14:07 Total Protein 6.6 g/dL (6.6-8.7) 02/25/22 05:53 Albumin 2.9 g/dL (3.5-5.2) L 02/25/22 05:53 Globulin 3.7 g/dL (1.3-4.6) 02/25/22 05:53 Procalcitonin 0.27 ng/mL (0-0.5) 02/23/22 20:57 TSH 0.51 uIU/mL (0.27-4.20) 02/24/22 05:38 Nasal Influ A H1 2008 PCR Detected (NOT DETECT) A 02/23/22 19:32 Coronavirus 229E (PCR) Not detected (NOT DETECT) 02/23/22 16:14 Influenza A (H1) PCR Not detected (NOT DETECT) 02/23/22 19:32 Influenza A (H3) PCR Not detected (NOT DETECT) 02/23/22 19:32 Influenza Type A (PCR) Detected (NOT DETECT) A 02/23/22 19:32 Influenza Type B (PCR) Not detected (NOT DETECT) 02/23/22 19:32 SARS-CoV-2 (PCR) Not detected (NOT DETECT) 02/23/22 16:14 Vitals Last Vital Signs Temp 97.8 F 02/25/22 14:15 Pulse 64 02/25/22 14:15 Resp 15 02/25/22 14:15 BP 119/62 12/04/22 14:15 Pulse Ox 94 02/25/22 14:15 O2 Del Method 02/25/22 12:00 O2 Flow Rate 2 02/23/22 16:16 FiO2 30 02/24/22 04:41 Discharge Plan Discharge Patient Disposition: Home Condition: Stable Prescriptions: New furosemide 40 mg tablet 20 mg PO QAM PRN (Reason: edema) Qty: 90 0RF levofloxacin 500 mg tablet 500 mg PO DAILY 3 Days Qty: 3 0RF dapagliflozin 10 mg tablet 10 mg PO DAILY Qty: 90 0RF Eliquis 5 mg tablet 5 mg PO BID Qty: 180 0RF aspirin 81 mg tablet,delayed release (DR/EC) 81 mg PO DAILY Qty: 90 0RF Continued carvedilol 6.25 mg tablet 6.25 mg PO BID Qty: 180 1RF Rx Instructions: must administer with a meal/food nitroglycerin 0.4 mg tablet, sublingual 0.4 mg sublingual Q5M PRN (Reason: chest pain) Qty: 60 1RF Rx Instructions: do not exceed 3 doses per episode albuterol sulfate 90 mcg/actuation HFA aerosol inhaler 2 inh inhalation Q6H PRN (Reason: shortness of breath or wheezing) Qty: 8.5 2RF ondansetron HCl 4 mg tablet 4 mg PO Q8H PRN (Reason: Nausea And Vomiting) oseltamivir 75 mg capsule 75 mg PO BID Rx Instructions: rx filled 02/18/22 5d/s atorvastatin 40 mg tablet 40 mg PO BEDTIME losartan 25 mg tablet 25 mg PO QAM Discontinued aspirin 325 mg Tablet 325 mg PO DAILY Discharge Orders: Discharge Order (Routine); Ordered 02/25/22 Ordered By: Rich Lay Referrals: Pedro Pablo Pepper M.D [Physician] - 1 week (Clinic will call with your appointment date and time.) Luisa Andrews MD [Primary Care Provider] - 4-7 days (Please call Saturday to dule your followup appointment with Dr. Andrews.) Discharge Diet: Cardiac Discharge Activity: Increase activity as tolerated Patient Instructions: Atrial Fibrillation, Levofloxacin (By mouth), Apixaban (By mouth), Dapagliflozin (By mouth), Heart Failure (GEN), Dilated Cardiomyopathy (GEN), Influenza (GEN), Bacterial Pneumonia (GEN), CHF Stoplight, Opioid Safety Activity Restrictions/Additional Instructions: Indication for extremity edema or gaining more than 3 pounds in 2 days, take Lasix. Complaint intubated course of Levaquin for bacterial pneumonia superimposed on influenza pneumonia. On revisit with your primary doctor for reassessment obtain pneumococcal vaccine, and discuss consideration of influenza vaccination. Continue aspirin, atorvastatin, carvedilol, losartan, and you are started on dapagliflozin for congestive heart failure. Coronary angiogram will also help with assessment of atrial fibrillation. Due to risk of stroke he would benefit from starting a blood thinner medication for stroke risk reduction. Discharge Attestations Time Spent in Discharge Care*: greater than 30 min Quality Metrics Clinical Quality Measures [ No reported AMI, CVA or VTE this stay] Coding Level of Care Code Acute [facility] note Diagnoses Influenza J11.1 Diffuse large B-cell lymphoma, unspecified site C83.30 HTN (hypertension) I10 COPD exacerbation J44.1 Hypoxia R09.02 Atrial fib/flutter, transient
== END 2022-02-25 14:16 | disposition home or self-care (01) | DRG 194 ==
LOC: ER 18:47 → MEDSURG 18:55
PROVIDERS: Internal Medicine; Physician Assistant; Admitting Provider Student in an Organized Health Care Education/Training Program; Emergency Provider Emergency Medicine; PCP Family Medicine; Visit Provider Internal Medicine
DX: J10.00 Influenza due to other identified influenza virus with unspecified type of pneumonia (principal); C83.30 Diffuse large B-cell lymphoma, unspecified site; I50.22 Chronic systolic (congestive) heart failure; J47.0 Bronchiectasis with acute lower respiratory infection; J47.1 Bronchiectasis with (acute) exacerbation; I11.0 Hypertensive heart disease with heart failure; J15.9 Unspecified bacterial pneumonia; I48.91 Unspecified atrial fibrillation; F17.210 Nicotine dependence, cigarettes, uncomplicated; I25.10 Atherosclerotic heart disease of native coronary artery without angina pectoris; Z79.51 Long term (current) use of inhaled steroids
CPT/HCPCS: 36415; 36600; 71045; 71250; 71275; 80048; 80051; 80053; 82330; 82803; 82805; 83735; 83880; 84145; 84443; 84484; 85025; 85378; 86140; 86403; 87070; 87205; 87449; 87631; 87635; 87641; 93005; 93306; 93970; 94640; 94660; 94760; 96365; 96367; 96372; 96375; 99285; G0378; J0456; J0692; J0696; J1650; J1940; J2930; J7030; J7050; J7626; Q9967

== ENCOUNTER → 2022-09-17 13:17 | Outpatient (BNVA) | payer MEDICARE, MEDICAID, SELFPAY | PROVIDERS: PCP Family Medicine; Visit Provider Family Medicine | DX: E78.5 Hyperlipidemia, unspecified (principal); I10 Essential (primary) hypertension; I25.10 Atherosclerotic heart disease of native coronary artery without angina pectoris; Z12.5 Encounter for screening for malignant neoplasm of prostate; J44.1 Chronic obstructive pulmonary disease with (acute) exacerbation; I51.9 Heart disease, unspecified | CPT/HCPCS: 80053; 80061; 84443; 85025; G0103 ==

== ENCOUNTER → 2023-07-15 16:54 | Outpatient (BNVA) | payer MEDICARE, MEDICAID, SELFPAY | PROVIDERS: PCP Family Medicine; Visit Provider Family Medicine | DX: I51.9 Heart disease, unspecified (principal); I10 Essential (primary) hypertension; E78.5 Hyperlipidemia, unspecified; Z79.899 Other long term (current) drug therapy | CPT/HCPCS: 80053; 80061; 84443; 85025 ==

== ENCOUNTER → 2024-05-25 12:39 | Outpatient (BNVA) | payer MEDICARE, MEDICAID, SELFPAY | PROVIDERS: PCP Family Medicine; Visit Provider Nurse Practitioner Family | DX: E11.9 Type 2 diabetes mellitus without complications (principal); I10 Essential (primary) hypertension; Z12.5 Encounter for screening for malignant neoplasm of prostate; I51.9 Heart disease, unspecified | CPT/HCPCS: 80053; 80061; 83036; 84443; 85025; G0103 ==

== ENCOUNTER → 2025-01-25 15:05 | Outpatient (BNVA) | payer MEDICARE, MEDICAID, SELFPAY | PROVIDERS: PCP Nurse Practitioner Family; Visit Provider Nurse Practitioner Family | DX: I10 Essential (primary) hypertension (principal); R73.9 Hyperglycemia, unspecified; I51.9 Heart disease, unspecified; E78.5 Hyperlipidemia, unspecified | CPT/HCPCS: 80053; 80061; 83036; 84443; 85025 ==